=== PATIENT | male | born 1990 | race Caucasian/White ===

== ENCOUNTER 2018-02-03 10:26 | Emergency (ER) | payer BC, SELFPAY ==
[2018-02-03 10:39] VITALS: BP 161/85; PULSE 94; RESP 16; TEMP 37.1; O2SAT 98
--- NOTE | 2018-02-03 10:58 | ED.GENADUL ---
Disposition Clinical Impression: Hand, foot and mouth disease Disposition: HOME Condition: Fair Instructions: Viral Syndrome (ED) Additional Instructions: Encourage hydration. Tylenol and/or ibuprofen as needed for discomfort. If the rash becomes itchy you may find hydrocortisone cream of benefit. Remember that you are contagious. Please wear a mask when around others. Wash her hands frequently. If you develop new or worsening symptoms seek care urgently once again. Please follow-up with primary care in 1 week if symptoms persist. Referrals: Primary Care Provider [Outside] Forms: Work Release Medical Decision Making - Medical Decision Making Patient presents today with concern for gigo-nbjs-srh-mouth. He does have scant few erythematous, circular lesions on his hand consistent and right foot consistent with wnza-fmay-ptj-mouth. No intraoral lesions are noted. Patient is afebrile. He is nontoxic appearing. Patient I discussed underlying pathology of hand foot and mouth as well as expected course. Encouraged hydration. Tylenol and/or Motrin as needed for discomfort. Advised on new/worsening symptoms and when to seek care urgently once again. Advised f/u with primary care in one week is rash persists. All of his questions and concerns were addressed, he is in agreement with this plan. Patient requesting note to return to work. 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 We discussed that he is currently contagious and methods that may be taken to prevent spread. History of Present Illness - General Chief complaint: RashLesion Stated complaint: HAND/FOOT/MOUTH? Time Seen by Provider: 02/03/18 10:58 Source: patient, RN notes reviewed Mode of arrival: ambulatory Limitations: no limitations - History of Present Illness Initial comments: Patient is a 27-year-old male presenting with chief complaint of fsmq-kwdj-qmv-mouth. Reports that his child was recently diagnosed with igcg-ietd-imh-mouth and has subsequently been improving. However, he noted rash on his bilateral hands and right foot this morning. He denies any pain with this. States that he was feeling feverish this weekend. Overall, continues to still feel well. Has not noted any intraoral lesions. - Related Data Unknown [No Known Home Meds] 10/05/14 Allergies Allergy/AdvReac Type Severity Reaction Status Date / Time cefaclor [From Ceclor] Allergy Severe Skin Rash Unverified 02/03/18 10:43 amoxicillin [Amoxicillin] Allergy Unknown Unverified 02/03/18 10:43 Review of Systems Constitutional: see HPI ENT: as per HPI Respiratory: no symptoms reported. denies: cough, shortness of breath Cardiovascular: denies: chest pain Gastrointestinal: denies: abdominal pain, nausea, vomiting Skin: as per HPI Past Medical History - Past Medical History Medical history: hypertension Surgical history: no surgical history - Social History Living Situation: lives with family General Exam - General Limitations: no limitations General appearance: alert, in no apparent distress - Eye Eye exam: Present: normal apperance - ENT ENT exam: Present: normal exam, normal orophraynx, mucous membranes moist - Neck Neck exam: Present: normal inspection. Absent: tenderness, lymphadenopathy - Respiratory Respiratory exam: Present: normal lung sounds bilaterally. Absent: respiratory distress - Cardiovascular Cardiovascular Exam: Present: regular rate, normal rhythm, normal heart sounds - Extremities Exam Extremities exam: Present: normal inspection (rash, please see below. No pain with palpation), full ROM, normal capillary refill. Absent: tenderness, joint swelling - Neurological Exam Neurological exam: Present: alert, normal gait - Psychiatric Psychiatric exam: Present: normal affect, normal mood - Skin Skin exam: Present: rash (Patient has a small, circular intermittent rash, consistent with hand foot and mouth along the medial side of the right foot and bilateral palms. No opening in the skin, no warmth or drainage. No surrounding erythema. Full ROM) Course Vital Signs - 24 hr 02/03/18 10:39 Temperature 37.1 C Pulse 94 H Respiratory 16 Rate Blood Pressure 161/85 Pulse Oximetry 98
--- NOTE | 2018-02-03 11:01 | ED.GENADUL_ITS ---
Disposition Clinical Impression: Hand, foot and mouth disease Disposition: HOME Condition: Fair Instructions: Viral Syndrome (ED) Additional Instructions: Encourage hydration. Tylenol and/or ibuprofen as needed for discomfort. If the rash becomes itchy you may find hydrocortisone cream of benefit. Remember that you are contagious. Please wear a mask when around others. Wash her hands frequently. If you develop new or worsening symptoms seek care urgently once again. Please follow-up with primary care in 1 week if symptoms persist. Referrals: Primary Care Provider [Outside] Forms: Work Release Medical Decision Making - Medical Decision Making Patient presents today with concern for yfzr-kqrh-xtv-mouth. He does have scant few erythematous, circular lesions on his hand consistent and right foot consistent with tvus-kekg-nuu-mouth. No intraoral lesions are noted. Patient is afebrile. He is nontoxic appearing. Patient I discussed underlying pathology of hand foot and mouth as well as expected course. Encouraged hydration. Tylenol and/or Motrin as needed for discomfort. Advised on new/ worsening symptoms and when to seek care urgently once again. Advised f/u with primary care in one week is rash persists. All of his questions and concerns were addressed, he is in agreement with this plan. Patient requesting note to return to work. 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 We discussed that he is currently contagious and methods that may be taken to prevent spread. History of Present Illness - General Chief complaint: RashLesion Stated complaint: HAND/FOOT/MOUTH? Time Seen by Provider: 02/03/18 10:58 Source: patient, RN notes reviewed Mode of arrival: ambulatory Limitations: no limitations - History of Present Illness Initial comments: Patient is a 27-year-old male presenting with chief complaint of owqu-nijv-zzj- mouth. Reports that his child was recently diagnosed with vqqv-wbgc-zbo-mouth and has subsequently been improving. However, he noted rash on his bilateral hands and right foot this morning. He denies any pain with this. States that he was feeling feverish this weekend. Overall, continues to still feel well. Has not noted any intraoral lesions. - Related Data Unknown [No Known Home Meds] 10/05/14 Allergies Allergy/AdvReac Type Severity Reaction Status Date / Time cefaclor [From Ceclor] Allergy Severe Skin Rash Unverified 02/03/18 10:43 amoxicillin [Amoxicillin] Allergy Unknown Unverified 02/03/18 10:43 Review of Systems Constitutional: see HPI ENT: as per HPI Respiratory: no symptoms reported. denies: cough, shortness of breath Cardiovascular: denies: chest pain Gastrointestinal: denies: abdominal pain, nausea, vomiting Skin: as per HPI Past Medical History - Past Medical History Medical history: hypertension Surgical history: no surgical history - Social History Living Situation: lives with family General Exam - General Limitations: no limitations General appearance: alert, in no apparent distress - Eye Eye exam: Present: normal apperance - ENT ENT exam: Present: normal exam, normal orophraynx, mucous membranes moist - Neck Neck exam: Present: normal inspection. Absent: tenderness, lymphadenopathy - Respiratory Respiratory exam: Present: normal lung sounds bilaterally. Absent: respiratory distress - Cardiovascular Cardiovascular Exam: Present: regular rate, normal rhythm, normal heart sounds - Extremities Exam Extremities exam: Present: normal inspection (rash, please see below. No pain with palpation), full ROM, normal capillary refill. Absent: tenderness, joint swelling - Neurological Exam Neurological exam: Present: alert, normal gait - Psychiatric Psychiatric exam: Present: normal affect, normal mood - Skin Skin exam: Present: rash (Patient has a small, circular intermittent rash, consistent with hand foot and mouth along the medial side of the right foot and bilateral palms. No opening in the skin, no warmth or drainage. No surrounding erythema. Full ROM) Course Vital Signs - 24 hr 02/03/18 10:39 Temperature 37.1 C Pulse 94 H Respiratory 16 Rate Blood Pressure 161/85 Pulse Oximetry 98
== END 2018-02-03 11:37 | disposition home or self-care (01) ==
LOC: ER 05-20 09:53
PROVIDERS: Emergency Provider Student in an Organized Health Care Education/Training Program
DX: B08.4 Enteroviral vesicular stomatitis with exanthem (principal)
CPT/HCPCS: 99282

== ENCOUNTER 2018-06-26 09:37 | Emergency (ER) | payer BC, SELFPAY ==
--- NOTE | 2018-06-26 09:39 | W.ED.GENAD ---
Discharge Plan Disposition Patient Disposition: HOME Condition: Stable Discharge Details Chief Complaint: RespSymp Clinical Impression: Flu-like symptoms Primary Care Provider: Tavares Marino ED Provider: Nils Buchanan Home Meds and New Rx's Prescriptions: No Action No Known Home Meds RF: 0 Discharge Instructions Additional Instructions: You are likely suffering from the flu or other viral illness drink fluids to stay hydrated if not better next week see your primary care provider return to the emergency department if you feel you are becoming more ill or feel significantly worse Stand Alone Forms: Work Release Medical Decision Making 27 yo male who denies chronic medical problems comes in with complaint of not feeling well for 4 days. States he has had chills, dry cough, myalgias and his family members have had similar symptmos. Denies recent travel, severe headaches, dyspnea. HE has normal lung sounds, clear rhinorrhea, speaking in full setnences and appears well systemically. I suspect he has influenza vs other viral illness. No fever here and has clear lungs and cough is nonproductive so doubt pna and do not feel cxr or abx indicated. HE denies ivdu and has no murmurs or other stigmata of endocarditis. ADvised f/u with pcp and retrun precautions given Differential Diagnosis influenza, uri, pna HPI General Mode of arrival: ambulatory. Date/Time Provider Initiated Documentation: 06/26/18 09:38. Limitations to Documentation: no limitations. Information obtained by: patient. History of Present Illness 27 year old M presents to the emergency department with the chief complaint of not feeling well, Patient started experiencing this day(s) (4) and it has been constant. No relieving factors improve symptom(s), No exacerbating factors reported . Patient notes cough. Patient did receive the following treatments prior to arrival, none Related Data Home Medications Medication Instructions Recorded Confirmed Unknown [No Known Home Meds] 10/05/14 06/26/18 Allergies Allergy/AdvReac Type Severity Reaction Status Date / Time cefaclor [From Ceclor] Allergy Severe Skin Rash Unverified 06/26/18 09:47 amoxicillin [Amoxicillin] Allergy Unknown Unverified 06/26/18 09:47 Review of Systems Review of Systems All systems reviewed & are unremarkable except as noted in HPI and below Constitutional Denies weakness ENT Denies change in voice Cardiovascular Denies chest pain and Denies dyspnea Respiratory Denies dyspnea Gastrointestinal Denies abdominal pain, Denies nausea and Denies vomiting Musculoskeletal Denies joint swelling Integumentary/Breasts Denies rash Neurologic Denies weakness Psychiatric Denies depression [facility] Social History Smoking/Tobacco Use Status: Former Tobacco Use Exam Const General: no acute distress Orientation: alert HENMT Head: normal to inspection Ears: external ears normal General nose exam: external nose normal Mouth: moist mucous membranes Eyes General: appearance normal, both eyes and all related structures Neck Neck: normal visual inspection Resp Effort & Inspection: normal respiratory effort and able to speak in complete sentences Cardio Rate: regular rate Skin General skin exam: no rashes or lesions noted Neuro General: alert and oriented x3 Extrem General: normal to inspection Psych Mental Status: mental status grossly normal
[2018-06-26 09:43] VITALS: BP 146/84; PULSE 102; RESP 16; TEMP 36.4; O2SAT 99
--- NOTE | 2018-06-26 09:56 | ED.GENADUL_ITS ---
Discharge Plan Disposition Patient Disposition: HOME Condition: Stable Discharge Details Chief Complaint: RespSymp Clinical Impression: Flu-like symptoms Primary Care Provider: Tavares Marino ED Provider: Nils Buchanan Home Meds and New Rx's Prescriptions: No Action No Known Home Meds RF: 0 Discharge Instructions Additional Instructions: You are likely suffering from the flu or other viral illness drink fluids to stay hydrated if not better next week see your primary care provider return to the emergency department if you feel you are becoming more ill or feel significantly worse Stand Alone Forms: Work Release Medical Decision Making 27 yo male who denies chronic medical problems comes in with complaint of not feeling well for 4 days. States he has had chills, dry cough, myalgias and his family members have had similar symptmos. Denies recent travel, severe headaches, dyspnea. HE has normal lung sounds, clear rhinorrhea, speaking in full setnences and appears well systemically. I suspect he has influenza vs other viral illness. No fever here and has clear lungs and cough is nonproductive so doubt pna and do not feel cxr or abx indicated. HE denies ivdu and has no murmurs or other stigmata of endocarditis. ADvised f/u with pcp and retrun precautions given Differential Diagnosis influenza, uri, pna HPI General Mode of arrival: ambulatory . Date/Time Provider Initiated Documentation: 06/26/18 09:38 . Limitations to Documentation: no limitations . Information obtained by: patient . History of Present Illness 27 year old M presents to the emergency department with the chief complaint of not feeling well, Patient started experiencing this day(s) (4) and it has been constant. No relieving factors improve symptom(s), No exacerbating factors reported . Patient notes cough. Patient did receive the following treatments prior to arrival, none Related Data Home Medications Medication Instructions Recorded Confirmed Unknown [No Known Home Meds] 10/05/14 06/26/18 Allergies Allergy/AdvReac Type Severity Reaction Status Date / Time cefaclor [From Ceclor] Allergy Severe Skin Rash Unverified 06/26/18 09:47 amoxicillin [Amoxicillin] Allergy Unknown Unverified 06/26/18 09:47 Review of Systems Review of Systems All systems reviewed & are unremarkable except as noted in HPI and below Constitutional Denies weakness ENT Denies change in voice Cardiovascular Denies chest pain and Denies dyspnea Respiratory Denies dyspnea Gastrointestinal Denies abdominal pain, Denies nausea and Denies vomiting Musculoskeletal Denies joint swelling Integumentary/Breasts Denies rash Neurologic Denies weakness Psychiatric Denies depression [facility] Social History Smoking/Tobacco Use Status: Former Tobacco Use Exam Const General: no acute distress Orientation: alert HENMT Head: normal to inspection Ears: external ears normal General nose exam: external nose normal Mouth: moist mucous membranes Eyes General: appearance normal, both eyes and all related structures Neck Neck: normal visual inspection Resp Effort & Inspection: normal respiratory effort and able to speak in complete sentences Cardio Rate: regular rate Skin General skin exam: no rashes or lesions noted Neuro General: alert and oriented x3 Extrem General: normal to inspection Psych Mental Status: mental status grossly normal
== END 2018-06-26 09:59 | disposition home or self-care (01) ==
PROVIDERS: Emergency Provider Emergency Medicine; PCP Emergency Medicine
DX: J11.1 Influenza due to unidentified influenza virus with other respiratory manifestations (principal); Z87.891 Personal history of nicotine dependence
CPT/HCPCS: 99282

== ENCOUNTER 2019-08-19 02:16 | Outpatient (CLI) | payer MEDICAID, SELFPAY ==
--- NOTE | 2019-08-19 12:08 | DI.US_ITS ---
APPROVED REPORT EXAM: Comprehensive 2D, Doppler, and color-flow Echocardiogram Patient Location: Out-Patient [employer] W[employer] Machine Tender: Leydi Craven RDCS (AE) Indications: Family history of Arrhythmia, HTN, LVH Conclusion Left Ventricle : The left ventricle is normal size. Left ventricular systolic function is normal. Th ere is normal left ventricular wall thickness. There is normal LV segmental wall motion. The left ve ntricular diastolic function is normal. LVEF is 55-59%. Right Ventricle : The right ventricle is normal size. The right ventricular systolic function is norm al. Atria : The left atrium size is normal. The right atrium size is normal. Valves: There are no significant valvular abnormalities. Great Vessels : IVC is normal in size and collapses >50% with inspiration. There is no prior echocardiogram available for comparison. Wall motion Left Ventricle The left ventricle is normal size. Left ventricular systolic function is normal. There is normal left ventricular wall thickness. There is normal LV segmental wall motion. The left ventricular diastolic function is normal. LVEF is 55-59%. Right Ventricle The right ventricle is normal size. The right ventricular systolic function is normal. Atria The left atrium size is normal. The right atrium size is normal. Aortic Valve The aortic valve is normal in structure. Aortic valve is trileaflet. There is no aortic valvular sten osis. No aortic regurgitation is present. Mitral Valve The mitral valve is normal in structure. No evidence of mitral valve stenosis. Trace mitral regurgita tion. Tricuspid Valve The tricuspid valve is normal in structure. There is no tricuspid valve stenosis. Trace tricuspid reg urgitation. Pulmonic Valve The pulmonary valve is normal in structure. There is no pulmonic valvular stenosis. Trace pulmonic re gurgitation. Great Vessels The aortic root is normal in size. The ascending aorta is normal in size. IVC is normal in size and c ollapses >50% with inspiration. Pericardium There is no pericardial effusion. 2D Dimensions IVSD d PLAX 0.89 cm M: 0.6-1.2 LV Vol A2C d MOD 93.5 mL LVPW d PLAX 0.91 cm M: 0.6 - 1.2 LV Vol A4C d MOD 105.2 mL LVID d PLAX 4.80 cm M: 4.2 - 5.8 LA vol/ BSA A2C s A-L 36.4 mL/m2 LVDs 3.30 cm M: 2.5 - 4.0 LA vol/ BSA A4C s A-L 25.7 mL/m2 Ao Root d 2.77 cm M: 3.1 - 3.7 LA Vol/ BSA Biplane s A-L 31.3 mL/m2 RA Area A4C 14.61 cm2 LA Area A4C s MOD 17.45 cm2 RA Vol/ BSA A4C s A-L 19.1 mL/m2 LA Area A2C s MOD 21.23 cm2 Ao Asc Diam d 3.25 cm M: 2.6 - 3.4 LV EF A4C MOD 59.2 % LV EF Teichholz 58.9 % LV EF A2C MOD 60.2 % LVEF (Celestin's) 59.88 % M: 52 - 72 LV EF Biplane MOD 59.9 % LV Volume 75.08 mL M: 62 - 150 LV Volume Index 36.09 mL/m2 M: 34 - 74 LV Vol Biplane MOD 101.5 mL FS 31.20 % LV Diastology MV E' medial 0.130 (>0.07 m/s) E/A Ratio 1.7 LV E/e MED 6.40 (<14) MV E Vmax 0.83 (0.4-1.3 m/s) MV E' lateral 0.141 (>0.1 m/s) MV A Vmax 0.50 (0.4-1.3 m/s) LV E/e LAT 5.90 (<14) MV E/A Ratio 1.55 MV E/E' medial 6.44 MV E/E' lateral 5.93 Aortic Valve LVOT Area 3.07 cm2 AoV Area Vmax 2.84 cm2 LVOT Vmax 1.27 m/s AoV Area/ BSA (Vmax) 1.36 cm2/m2 LVOT Mean Rodo. 0.79 m/s AMANDA Mean Rodo. 2.57 cm2 LVOT Peak Grad 6.5 mmHg AMANDA Mean Rodo. Index 1.23 cm2/m2 LVOT Mean Grad 3.0 mmHg LVOT VTI 0.215 m LVOT Diam s 1.95 cm (M/F) 1.5-2.5 AoV Vmax 1.38 (0.5-1.3 m/s) Velocity Ratio 0.92 AoV Mean Rodo. 0.94 m/s AoV Peak Grad 7.6 mmHg LVOT SV 65.93 mL AoV Mean Grad 4.0 (<5 mmHg) AoV VTI 0.232 (0.18-0.25 m) AoV Area VTI 2.84 (2.5-4.5 cm2) AoV Area/ BSA (VTI) 1.36 cm/m2 Mitral Valve MV DT 199 (160-240 msec) MV PHT 58 msec MV Area PHT 3.81 cm2 Pulmonary Valve PV Vmax 1.23 (0.5-1.5 m/s) RVOT Peak Gr. 3.37 mmHg PV Peak Grad 6.0 mmHg RVOT Mean Gr. 1.65 mmHg PV Mean Grad 3.1 mmHg RVOT VTI 0.165 m PV VTI 0.223 m RVOT Vmax 0.92 m/s Tricuspid Valve TR Peak Grad 29.6 mmHg TR Vmax 2.72 m/s RA Pressure 3.00 mmHg RVSP (TR) 32.6 mmHg
== END 2019-08-19 02:36 ==
PROVIDERS: PCP Emergency Medicine; Visit Provider Family Medicine
DX: I10 Essential (primary) hypertension (principal); Z82.49 Family history of ischemic heart disease and other diseases of the circulatory system
CPT/HCPCS: 93306

== ENCOUNTER 2021-01-23 12:11 | Outpatient (CLI) | payer MEDICAID, SELFPAY | END 2021-01-23 12:12 | disposition home or self-care (01) | LOC: LBO 12:11 | DX: Z20.822 Contact with and (suspected) exposure to COVID-19 (principal); R05 Cough | CPT/HCPCS: 87635 ==

== ENCOUNTER 2021-05-21 10:55 | Emergency (ER) | payer MEDICAID, SELFPAY ==
[2021-05-21 11:01] VITALS: BP 170/112; PULSE 97; RESP 18; TEMP 36.7; O2SAT 98
[2021-05-21 11:03] VITALS: BP 170/112; PULSE 95; O2SAT 98
[2021-05-21 11:04] VITALS: PULSE 90; RESP 23; O2SAT 99
[2021-05-21 11:10] VITALS: PULSE 82; RESP 22; O2SAT 98
--- NOTE | 2021-05-21 11:25 | ED.GENADUL_ITS ---
Discharge Plan Disposition Patient Disposition: HOME Condition: Stable Discharge Details Clinical Impression: Cough Primary Care Provider: Dayo Jackson ED Provider: Jagjit Lai Home Meds and New Rx's Prescriptions: No Action No Known Home Meds RF: 0 Discharge Instructions Instructions: Acute Cough (ED) Additional Instructions: Covid test is pending, typically results in 2-3 days. Presumptively I do believe you have Covid and recommend quarantining for 10 days from the onset of your symptoms. Plenty of fluids to avoid dehydration. [id number] Tylenol and/or Motrin as directed for discomfort. You are being sent home with a pulse oximeter, please monitor your oxygen levels, if your O2 levels are consistently below 90 please return immediately to the ER. Otherwise contact your primary care provider on Saturday to discuss your ER visit and need for outpatient reevaluation. Medical Decision Making 30-year-old male presents with flulike symptoms, took a home Covid test today and was positive. Requesting a Covid test now. He appears well, nontoxic, does not meet criteria for antibiotic infusion, is not requiring supplemental oxygen. Presumptively patient does have Covid given his symptoms and positive home test. Will test now with a send out test. Will send home with Covid precautions, quarantining, [id number] medications, and home pulse oximeter. Standard discharge and return precautions provided. Patient has no additional questions or concerns. He is afebrile, lungs are clear to auscultation, O2 sat is 98% on room air. Extremely low suspicion for acute pneumonia, will not pursue x-ray of the chest Medical Records Medical records reviewed: Yes I reviewed the patient's medical records. HPI General Mode of arrival: ambulatory . Date/Time Provider Initiated Documentation: 05/21/21 10:59 . Limitations to Documentation: no limitations . Information obtained by: patient . HPI Narrative: This is a 30-year-old gentleman, non-smoker, no significant past medical history presenting to the ER requesting a Covid test for mild viral-like syndrome. Patient states that he developed symptoms on Saturday, dull headache, body aches, subjective fever, mild dry cough. He took an [id number] Covid test on Saturday and it was negative. He states that since that time symptoms have persisted. He denies a documented fever, neck pain, sore throat, shortness of breath, productive cough, abdominal pain, nausea, vomiting or diarrhea, skin rash. He denies any obvious sick contacts. He is not vaccinated for Covid. This morning he took another [id number] test and today it was positive. Coming today to the ER requesting a third test. Related Data Home Medications Medication Instructions Recorded Confirmed Unknown [No Known Home Meds] 10/05/14 05/21/21 Allergies Allergy/AdvReac Type Severity Reaction Status Date / Time cefaclor [From Ceclor] Allergy Severe Skin Rash Unverified 05/21/21 11:07 amoxicillin [Amoxicillin] Allergy Unknown Unverified 05/21/21 11:07 General Stated Complaint: RespSymp APOLLO: 3 Review of Systems Constitutional Constitutional: Reports fever(s) (Subjective) and Reports headache(s) ENT Ears, Nose, Mouth, and Throat: Reports headache(s), Denies neck pain and Denies sore throat Cardiovascular Cardiovascular: Denies chest pain and Denies dyspnea Respiratory Respiratory: Reports cough and Denies dyspnea Gastrointestinal Gastrointestinal: Denies abdominal pain, Denies nausea and Denies vomiting Musculoskeletal Musculoskeletal: Reports myalgias and Denies neck pain Integumentary/Breasts Skin/Breast: Denies rash Neurologic Neurologic: Reports headache(s) PFSH All Active Problems (Updated 05/21/21 @ 11:38 by MARGIE Adam) Cough (Acute) Social History Smoking/Tobacco Use Status: Current every day Tobacco Type: smokeless tobacco Smoking risk assessment performed?: Yes Alcohol Intake: current Alcohol Intake frequency: a few times a week Alcohol type: beer Drug use: Socially Substance use type: marijuana Do you feel safe at home: Yes Do you feel safe in your relationship?: Yes Exam Const General: cooperative, healthy appearing, comfortable and no acute distress Orientation: alert, awake and oriented x3 HENMT Head: normal to inspection, normocephalic and atraumatic Ears: external ears normal, TM's normal bilaterally and EAC's normal Mouth: moist mucous membranes Throat: posterior oropharynx normal Eyes General: appearance normal, both eyes and all related structures Conjunctivae: conjunctivae normal Neck Neck: normal visual inspection, full ROM, no lymphadenopathy, no meningeal signs, trachea midline, supple and nontender Resp Effort & Inspection: normal respiratory effort and able to speak in complete sentences Auscultation: clear to auscultation bilaterally Cardio Rate: regular rate Rhythm: regular rhythm GI Palpation: soft and nontender Skin General skin exam: no rashes or lesions noted Neuro General: patient alert, patient awake, moves all extremities and no focal motor deficits Sensory Exam: no sensory deficits noted Psych Appearance: grossly normal Mental Status: mental status grossly normal Course Vital Signs Vital signs: Vital Signs Temperature 36.7 C 05/21/21 11:01 Pulse 97 H 05/21/21 11:01 Respiratory Rate 18 05/21/21 11:01 Blood Pressure 170/112 H 05/21/21 11:01 Pulse Oximetry 98 05/21/21 11:01 Temperature 36.7 C 05/21/21 11:01 Temperature Source Skin 05/21/21 11:01 Pulse 95 H 05/21/21 11:03 Pulse 82 05/21/21 11:10 Respiratory Rate 22 05/21/21 11:10 Respiratory Effort 05/21/21 11:07 Respiratory Depth Normal 05/21/21 11:07 Blood Pressure 170/112 H 05/21/21 11:03 Blood Pressure Mean 127 05/21/21 11:03 Pulse Oximetry 98 05/21/21 11:10 Oxygen Delivery Method Room Air 05/21/21 11:01 Oxygen Flow Rate 0 05/21/21 11:01 Pain Level 3 05/21/21 11:01 PAWSS Have you Been Recently Intoxicated or Drunk Within the Last 30 days?: No Have you Ever Experienced Previous Episodes of Alcohol Withdrawal?: No Have you ever Experienced Withdrawal Seizures?: No Have you ever Experienced Delirium Tremens(DT)s?: No Have you ever undergone Alcohol Rehabilitation Treatment (i.e, inpt ot outpatient treatment programs)?: No Have you ever Experienced Blackouts?: No Have you ever Combined Alcohol with other Downers within the last 90 days?: No Have you ever Combined Alcohol with any other Substance of Abuse during the last 90 days?: No Evidence of Increased Autonomic Activity (i.e. HR>120, tremor, sweating, agitation, nausea)?: No Result: 0
[2021-05-23 16:25] LABS: COVID-19 RT-PCR UVMMC Result Positive (Negative)
== END 2021-05-21 11:52 | disposition home or self-care (01) ==
PROVIDERS: Emergency Provider Physician Assistant; PCP Family Medicine
DX: U07.1 COVID-19 (principal); R51.9 Headache, unspecified
CPT/HCPCS: 99282; U0003; 99283

== ENCOUNTER 2021-06-16 01:12 | Emergency (ER) | payer MEDICAID, SELFPAY ==
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
[2021-06-16 01:13] VITALS: BP 177/93; PULSE 108; RESP 18; TEMP 37; O2SAT 99
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
[2021-06-16 01:45] VITALS: BP 161/92; PULSE 115; RESP 16; O2SAT 99
[2021-06-16] MEDS: Acetaminophen 500 MG TAB 1000 MG PO (01:54)
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
[2021-06-16 02:06] VITALS: BP 169/82; PULSE 124; RESP 18; O2SAT 100
== END 2021-06-16 02:20 | disposition home or self-care (01) ==
LOC: ER 02:17
PROVIDERS: Emergency Provider Emergency Medicine; PCP Family Medicine
DX: S16.1XXA Strain of muscle, fascia and tendon at neck level, initial encounter (principal); R51.9 Headache, unspecified; V59.9XXA Occupant (driver) (passenger) of pick-up truck or van injured in unspecified traffic accident, initial encounter
CPT/HCPCS: 99284; 70450; 72125; 99283

== ENCOUNTER 2023-03-06 15:25 | Emergency (ER) | payer MEDICAID, SELFPAY ==
[2023-03-06 15:29] VITALS: BP 154/94; PULSE 79; RESP 14; TEMP 37.3; O2SAT 100
--- NOTE | 2023-03-06 15:45 | DI.US_ITS ---
Exam(s) US ABDOMEN LIMITED EXAM: US ABDOMEN LIMITED CLINICAL HISTORY: RUQ pain TECHNIQUE: Ultrasound abdomen performed using standard protocol. COMPARISON: No exams were available for comparison FINDINGS: PANCREAS: Normal where visualized. LIVER: Normal. Hepatopedal flow in the Portal Vein. The liver measures in 11.9 cm length. GALLBLADDER: No evidence of cholelithiasis. No evidence of wall thickening. No pericholecystic fluid identified. BILIARY SYSTEM: Common bile duct measures < 7 mm. No intrahepatic biliary ductal dilation. VAUGHN'S SIGN: Negative. RIGHT KIDNEY: Kidney is normal in size. No evidence of renal calculi. No evidence of hydronephrosis. No renal mass or cyst identified. ASCITES: None seen. IMPRESSION: 1. Normal sonographic appearance of the upper abdomen. 2. Findings were discussed with the emergency department at 4:19 p.m. on 03/06/2023. DATA REPOSITORY:
[2023-03-06 16:30] LABS: Abs Immature Grans 0.04 10^3/uL (0.0-0.06); Absolute Basophil Count 0.09 10^3/uL (0.0-0.2); Absolute Lymphocyte Count 2.07 10^3/uL (1.2-3.4); Absolute Monocyte Count 0.85 10^3/uL (0.1-0.8); Absolute Neutrophil Count 7.46 10^3/uL (1.2-6.7); Basophils % 0.8; Eosinophils % 1.9; HCT 45.4 % (40.0-50.0); HGB 15.8 g/dL (13.5-17.5); Immature Grans % 0.4; Lymphocytes % 19.3; MCH 29.6 pg (27.0-33.0); MCHC 34.8 % (32.0-36.0); MCV 85 fL (80-95); MPV 9.8 fL (8.0-11.0); Monocytes % 7.9; Neutrophils % 69.7; Platelet Count 301 10^3/uL (130-400); RBC 5.33 10^6/uL (4.36-5.78); RDW 12.1 % (11.8-14.1); RDW-SD 37.4 fL; WBC 10.71 10^3/uL (4.4-10.8)
[2023-03-06 16:54] LABS: ALT 23 U/L (16-63); AST 16 U/L (15-37); Albumin 4.8 g/dL (3.4-5.0); Alkaline Phosphatase 58 U/L (46-116); Anion Gap 10.8 mmol/L (3-11); BUN 14 mg/dL (7-18); Bilirubin, Total 1.4 mg/dL (0.2-1.0); CO2 27.2 mmol/L (21.0-32.0); Calcium 9.9 mg/dL (8.5-10.1); Chloride 105 mmol/L (98-107); Estimated GFR 101.92 (mL/min/1.73m2); Glucose 84 mg/dL (74-106); Lipase 28 U/L (16-77); Potassium 4.1 mmol/L (3.5-5.1); Sodium 143 mmol/L (136-145); Total Protein 8.1 g/dL (6.4-8.2)
--- NOTE | 2023-03-06 16:56 | ED.GENADUL_ITS ---
Discharge Plan Disposition Patient Disposition: Home Discharge Details Clinical Impression: Acute epigastric pain Primary Care Provider: Dayo Jackson ED Provider: Luz De Leon Home Meds and New Rx's Prescriptions: Continued lisinopril 5 mg tablet 5 mg PO DAILY Discharge Instructions Instructions: Abdominal Pain (ED) Additional Instructions: take prilosec daily take pepcid as prescribed follow-up to establish care return with persistent, worsening, or any new complaints Discharge Data Discharge Date/Time-TO BE ENTERED AT DEPARTURE: 03/06/23 17:36 Medical Decision Making This 32-year-old male presents with right upper quadrant pain for the past 2 hours. States started at work. Denies any additional complaints. Denies any chest pain or shortness of breath. Denies any dizziness or weakness. Diagnostic labs not show evidence of acute abnormality, ultrasound negative per radiology interpretation and my review Bilirubin slightly elevated, suspect [place] Take Pepcid and Prilosec for the next several weeks to see if it helps with discomfort and return earlier should you have new or worsening complaints HPI General Date/Time Provider Initiated Documentation: 03/06/23 15:37 . HPI Narrative: This 32-year-old male presents with report of right upper quadrant pain, denies chest pain or shortness of breath. States the pain started approximately 10:00. Denies any known exacerbating factors. Denies any fever or chills. Denies any nausea or vomiting. Denies any abdominal pain or blood in stool. Denies any weight loss. Does chew tobacco, smokes marijuana, denies alcohol use, sober for 2 years per patient. Denies any blood in stools. Denies any exacerbating or alleviating factors. Related Data Home Medications Medication Instructions Recorded Confirmed lisinopril 5 mg tablet 5 mg PO DAILY 06/16/21 06/16/21 Allergies Allergy/AdvReac Type Severity Reaction Status Date / Time cefaclor [From Ceclor] Allergy Severe Skin Rash Unverified 06/16/21 01:24 amoxicillin [Amoxicillin] Allergy Unknown Unverified 06/16/21 01:24 General Stated Complaint: Abd Prob APOLLO: 3 PFSH All Active Problems (Updated 03/06/23 @ 17:16 by MARGIE Hammer) Acute epigastric pain (Acute) Cough (Acute) Medical History HTN (hypertension) Surgical History No significant past surgical history Social History Smoking/Tobacco Use Status: Current every day Tobacco Type: smokeless tobacco Smoking risk assessment performed?: Yes Alcohol Intake: current Alcohol Intake frequency: a few times a week Alcohol type: beer Drug use: Socially Substance use type: marijuana Do you feel safe at home: Yes Do you feel safe in your relationship?: Yes Course Vital Signs Vital signs: Vital Signs Temperature 37.3 C 03/06/23 15:29 Pulse 79 03/06/23 15:29 Respiratory Rate 14 03/06/23 15:29 Blood Pressure 154/94 H 03/06/23 15:29 Pulse Oximetry 100 03/06/23 15:29 Temperature 37.3 C 03/06/23 15:29 Temperature Source Skin 03/06/23 15:29 Pulse 79 03/06/23 15:29 Respiratory Rate 14 03/06/23 15:29 Respiratory Effort Normal 03/06/23 16:24 Blood Pressure 154/94 H 03/06/23 15:29 Blood Pressure Position Sitting 03/06/23 15:29 Pulse Oximetry 100 03/06/23 15:29 Oxygen Delivery Method Room Air 03/06/23 15:29 Oxygen Flow Rate 0 03/06/23 15:29 Pain Level 2 03/06/23 15:29 Lab/Test Results Lab/Test Results: Laboratory Tests Range/Units 03/06/23 16:22 WBC (4.4-10.8) 10^3/uL 10.71 RBC (4.36-5.78) 10^6/uL 5.33 Hgb (13.5-17.5) g/dL 15.8 Hct (40.0-50.0) % 45.4 MCV (80-95) fL 85 MCH (27.0-33.0) pg 29.6 MCHC (32.0-36.0) % 34.8 RDW (11.8-14.1) % 12.1 Plt Count (130-400) 10^3/uL 301 MPV (8.0-11.0) fL 9.8 Immature Gran % 0.4 Neutrophils % 69.7 Lymphocytes % 19.3 Monocytes % 7.9 Eosinophils % 1.9 Basophils % 0.8 Nucleated RBC % (0.0-0.3) % 0.0 Absolute Neutrophils (1.2-6.7) 10^3/uL 7.46 H Absolute Lymphocytes (1.2-3.4) 10^3/uL 2.07 Absolute Monocytes (0.1-0.8) 10^3/uL 0.85 H Absolute Eosinophils (0.0-0.7) 10^3/uL 0.20 Absolute Basophils (0.0-0.2) 10^3/uL 0.09
[2023-03-06 17:18] LABS: Bilirubin Negative (Negative); Blood Negative (Negative); Clarity Clear (Clear); Glucose Negative (Negative); Ketones 40 mg/dL (Negative); Leukocyte Esterase Negative (Negative); Nitrite Negative (Negative); Specific Gravity >= 1.030 (1.005-1.025); Urobilinogen 0.2 mg/dL (Up to 0.2)
== END 2023-03-06 17:36 | disposition home or self-care (01) ==
PROVIDERS: Emergency Provider Physician Assistant; PCP Family Medicine
DX: R10.812 Left upper quadrant abdominal tenderness (principal); R10.13 Epigastric pain; F17.200 Nicotine dependence, unspecified, uncomplicated
CPT/HCPCS: 80053; 83690; 99284; 76705; 81003; 85025; 99283

== ENCOUNTER 2024-06-01 13:10 | Inpatient (IN) | payer MEDICAID, SELFPAY ==
[2024-06-01] VITALS (45 sets, daily range): BP systolic 123–180; BP diastolic 74–101; PULSE 72–114; RESP 15–34; TEMP 36.4–38.1; O2SAT 94–100
--- NOTE | 2024-06-01 13:15 | DI.RAD_ITS ---
Exam(s) XR CHEST 2V PA LATERAL EXAM: XR CHEST 2V PA LATERAL CLINICAL HISTORY: cough, fever TECHNIQUE: 2D digital imaging was performed. Two views. COMPARISON: CT CT ABDOMEN PELVIS W from 06/01/2024 FINDINGS: Lateral view is limited by poor inspiratory effort. HEART: Normal size. Aorta: Not dilated. PULMONARY VASCULATURE: Normal. MEDIASTINUM: Unremarkable. LUNGS: Clear. PLEURAL SPACE: No pleural effusion or pneumothorax. BONE:Unremarkable for age. SOFT TISSUES: Unremarkable. IMPRESSION: No acute abnormality. DATA REPOSITORY: RADIATION DOSE DELIVERED:
--- NOTE | 2024-06-01 13:41 | ED.GENADUL_ITS ---
Discharge Plan Discharge Details Chief Complaint: Fever Primary Care Provider: Dayo Jackson ED Provider: Roosevelt Her Home Meds and New Rx's Prescriptions: No Action No Known Home Meds HPI General Date/Time Provider Initiated Documentation: 06/01/24 13:21 . HPI Narrative: 33 year-old male presents to ED today by POV/ambulating with a chief complaint of sore throat, productive cough, fever, nausea with onset a week ago. Quality described as generally feels sick, denies focal chest pain, no radiation to respiratory distress, profound lethargy, syncope, diarrhea, vomiting. Severity is described as moderate. Palliating factors include nothing specific attempted. Provoking factors include nothing specific. Patient not anticoagulated. Related Data Home Medications ?Medication ?Instructions ?Recorded ?Confirmed Unknown [No Known Home Meds] 09/09/23 06/01/24 Allergies Allergy/AdvReac Type Severity Reaction Status Date / Time cefaclor (From Ceclor) Allergy Severe Skin Rash Unverified 06/01/24 13:38 amoxicillin (Amoxicillin) Allergy Unknown Other (See Unverified 06/01/24 13:38 Comment) General Stated Complaint: Fever APOLLO: 4 Review of Systems All systems reviewed & are unremarkable except as noted in HPI and below Exam Narrative Exam Narrative: GENERAL APPEARANCE: Well-nourished, toxic, awake and alert, atraumatic, no acute distress. SKIN: Warm, pink, dry, intact, without rashes/lesions/ulcerations. HEAD: Normocephalic, atraumatic, normal hair distribution for gender/age. EYES: Normal conjunctiva, no exudates on lids/lashes. ENT: Nares patent, no circumoral cyanosis, no facial swelling, exudate without shift or swelling to left tonsil, uvula midline NECK: Supple, trachea midline, painless cervical ROM. LUNGS/CHEST: Lungs CTA bilaterally-no rhonchi/rales/wheezes diffusely, non- labored respirations, normal A/P diameter, symmetrical expansion, no chest wall deformity HEART (CV/PV): Regular rate and rhythm without murmur, no peripheral edema, no JVD. ABDOMEN: Soft, non-distended, no guarding, negative Ibrahim's, no severe right upper quadrant tenderness. MSK: Normal ROM, no swelling/deformity to bilateral UEs or LEs, moving all extremities without weakness, no cyanosis, spine midline without tenderness, normal curvature. NEURO: Mental Status AAOx4 - alert to person, place, time, events No facial droop, no forehead involvement. Motor: No focal weakness - strength 5/5 in bilateral UEs and LEs, proximal and distal, symmetric. Sensory: sensation intact to light touch globally. Gait normal: patient ambulated without ataxia into ED room. PSYCH: euthymic, cooperative, pleasant, appropriate speech Course Vital Signs Vital signs: Vital Signs Temperature 38.1 C H 06/01/24 13:13 Pulse 110 H 06/01/24 13:13 Respiratory Rate 15 06/01/24 13:13 Blood Pressure 123/79 06/01/24 13:13 Pulse Oximetry 98 06/01/24 13:13 Temperature 38.1 C H 06/01/24 13:13 Pulse 110 H 06/01/24 13:13 Respiratory Rate 15 06/01/24 13:13 Blood Pressure 123/79 06/01/24 13:13 Blood Pressure Position Sitting 06/01/24 13:13 Pulse Oximetry 98 06/01/24 13:13 Oxygen Delivery Method Room Air 06/01/24 13:13 Oxygen Flow Rate 0 06/01/24 13:13 Medical Decision Making This dictation utilizes [id number] dictation software and may contain unedited grammatical errors. 33 year-old male presents to ED today by POV/ambulating with a chief complaint of sore throat, productive cough, fever, nausea with onset a week ago. Quality described as generally feels sick, denies focal chest pain, no radiation to respiratory distress, profound lethargy, syncope, diarrhea, vomiting. Severity is described as moderate. Palliating factors include nothing specific attempted. Provoking factors include nothing specific. Patients' medical history: Hypertension. Family and social history: Noncontributory, states healthy exercises regularly, denies heavy EtOH use, currently- states he used to drink a lot but quit for two years, now only in small amounts Pertinent exam findings / vital signs include lungs overtly CTA, benign abdomen, there is some exudate on his left tonsil but uvula is midline, toxic vital signs with fever. Differential / pathologies of concern include strep, Legionella pneumonia, cholangitis or other biliary tree pathology, gastroenteritis, colitis, deep space infection less likely in the neck. Diagnostic studies of: -CBC, CMP, lactate, lipase, conjugated bilirubin, alcohol level, rapid strep, COVID/flu/RSV PCR, blood cultures, XR chest, CT ABD/pelvis W contrast, hepatitis panel. -Leukocytosis of 12.6 with elevated lymphocyte count at 8.34 -Lactate elevated at 2.1 -CMP shows mild hyponatremia, mild hypokalemia, repleted p.o., mild hypocalcemia, significantly elevated total bilirubin at 5.2 with conjugated bilirubin of 4.2 indicating possible obstructive pathology -Significant elevation of AST and ALT around 300, refluxing acute hepatitis panel -Lipase within normal limits -Alcohol level negative Interventions of: -1L IVF NS, empiric 750mg IV levofloxacin to cover PNA in setting of PCN/ceph allergy. ED Course/Assessment/Plan: 33-year-old male presents with 1 week of fever and cough, has markers of possible sepsis with elevated lactate but has significant elevation of liver enzymes and possible obstructive pattern and conjugated bilirubin, possible Legionella pneumonia suspected with this bump in LFTs but will rule out any obstructive pathology with CT, patient is nontender in the abdomen but has noticed bloating, patient signed out to oncoming provider Cinthya Lincoln, OIL FIELD EQUIPMENT MECHANIC SUPERVISOR with pending imaging studies. Findings not consistent with severe sepsis, septic shock. Disposition of Pneumonia, Hepatitis. Patient verbalized understanding of the plan and return to ED criteria and engaged in shared decision making. Medical Records Medical records reviewed: Yes I reviewed the patient's medical records. Imaging Data Radiologic Study: Attestation: I personally reviewed and interpreted this imaging study as follows: Imaging: CT Scan My impression: Pending at sign-out Radiologic Study #2: Attestation: I personally reviewed and interpreted this imaging study as follows: Imaging: X-Ray My impression: Pending at sign-out Lab Data Lab results reviewed: Yes I reviewed the patient's lab results. Labs: 06/01/24 14:15 Tonsil - Not Specified Group A Streptococcus Culture - Pending 06/01/24 14:04 Blood Blood Culture - Pending 06/01/24 14:04 Blood Blood Culture - Pending Laboratory Tests Range/Units 06/01/24 13:50 WBC (4.4-10.8) 10^3/uL 12.63 H RBC (4.36-5.78) 10^6/uL 4.93 Hgb (13.5-17.5) g/dL 15.2 Hct (40.0-50.0) % 43.0 MCV (80-95) fL 87 MCH (27.0-33.0) pg 30.8 MCHC (32.0-36.0) % 35.3 RDW (11.8-14.1) % 12.4 Plt Count (130-400) 10^3/uL 185 MPV (8.0-11.0) fL 10.3 Immature Gran % % 0.0 Neutrophils % % 21.0 Band Neutrophils % % 0 Lymphocytes % % 62.0 Atypical Lymphs % % 4 Monocytes % % 13.0 Eosinophils % % 0.0 Basophils % % 0.0 Nucleated RBC % (0.0-0.3) % 0.0 Absolute Neutrophils (1.2-6.7) 10^3/uL 2.65 Absolute Lymphocytes (1.2-3.4) 10^3/uL 8.34 H Absolute Monocytes (0.1-0.8) 10^3/uL 1.64 H Absolute Eosinophils (0.0-0.7) 10^3/uL 0.00 Absolute Basophils (0.0-0.2) 10^3/uL 0.00 VBG Lactate (0.6-1.4) mmol/L 2.1 H Sodium (136-145) mmol/L 134 L Potassium (3.5-5.1) mmol/L 3.3 L Chloride (98-107) mmol/L 97 L Carbon Dioxide (21.0-32.0) mmol/L 27.9 Anion Gap (3-11) mmol/L 9.1 BUN (7-18) mg/dL 9 Creatinine (0.70-1.30) mg/dL 1.3 Est GFR (CKD-EPI 2020) (mL/min/1.73m2) 73.93 Glucose (74-106) mg/dL 103 Calcium (8.5-10.1) mg/dL 8.3 L Total Bilirubin (0.2-1.0) mg/dL 5.28 H Conjugated Bilirubin (0.0-0.2) mg/dL 4.2 H AST (15-37) U/L 287 H ALT (16-63) U/L 292 H Alkaline Phosphatase (46-116) U/L 339 H Total Protein (6.4-8.2) g/dL 7.4 Albumin (3.4-5.0) g/dL 3.3 L Lipase (<78) U/L 35 Ethyl Alcohol (<10) mg/dL < 3.0 COVID-19 Source Nasopharynx SARS-CoV-2 (PCR) (Negative) Negative Influenza Type A (PCR) (Negative) Negative Influenza Type B (PCR) (Negative) Negative RSV (PCR) (Negative) Negative Quality:SDOH Health Related Social Needs: No Data to Display PFSH All Active Problems (Updated 04/06/23 @ 00:01 by SORAYA ROMERO) Cough (Acute) Medical History HTN (hypertension) Surgical History No significant past surgical history Social History Smoking/Tobacco Use Status: Current every day Tobacco Type: smokeless tobacco Smoking risk assessment performed?: Yes Alcohol Intake: current Alcohol Intake frequency: a few times a week Alcohol type: beer Drug use: Socially Substance use type: marijuana Do you feel safe at home: Yes Do you feel safe in your relationship?: Yes
[2024-06-01 13:54] LABS: Abs Immature Grans 0.15 10^3/uL (0.0-0.06); HGB 15.2 g/dL (13.5-17.5); MCH 30.8 pg (27.0-33.0); MCHC 35.3 % (32.0-36.0); MCV 87 fL (80-95); MPV 10.3 fL (8.0-11.0); Platelet Count 185 10^3/uL (130-400); RBC 4.93 10^6/uL (4.36-5.78); RDW 12.4 % (11.8-14.1); RDW-SD 39.6 fL; WBC 12.63 10^3/uL (4.4-10.8)
--- NOTE | 2024-06-01 14:00 | DI.CT_ITS ---
Exam(s) CT ABDOMEN PELVIS W EXAM: CT ABDOMEN PELVIS W CLINICAL HISTORY: sepsis, elev bili- infection search TECHNIQUE: Imaging Protocol: Axial computed tomography images with coronal and sagittal reformatted images were created and reviewed. CONTRAST MATERIAL: Intravenous: Omnipaque 350 Contrast volume:80 mL Oral: No COMPARISON: No exams were available for comparison FINDINGS: ABDOMEN: Lung Bases: There is dependent atelectasis in the lung bases. Liver: Normal density. No measurable mass. The liver is enlarged measuring 21 cm. Portal, Superior Mesenteric, and Splenic Veins: Unremarkable. Gallbladder and Biliary Tract: No radiodense calculus or dilation. Pancreas: Normal density, no abnormal calcifications or inflammatory process. Spleen: There are several areas of decreased attenuation seen within the spleen. There are prominentl y peripherally based. The spleen is enlarged measuring 17.5 cm. Adrenals: No masses seen. Kidneys: Normal size, contour and axis. No radiodense stones or obstructive uropathy. No masses seen. Abdominal Aorta: Abdominal portion non-dilated. Bowel: No obstruction or bowel wall thickening. There is no evidence of appendicitis. Peritoneal Cavity: No ascites, collection or mesenteric inflammatory response. No free air. Lymph Nodes: Within normal limits. Bones: Within normal limits for the patient's age. Soft Tissues: Unremarkable. PELVIS: Bladder: Symmetric distention, no gross wall thickening. Reproductive Organs: Unremarkable as visualized. Lymph Nodes: Within normal limits. Bones: Within normal limits for the patient's age. IMPRESSION: 1. Splenomegaly. Multiple areas of decreased attenuation scattered throughout the spleen. The a perip herally located. Differential considerations include infarcts, masses or abscesses. Lacerations are c onsidered less likely. Please correlate clinically. No perisplenic hematoma is present. There is no e vidence of a splenic artery or vein thrombus. 2. Mild hepatomegaly. RADIATION DOSE DELIVERED: Total DLP DATA REPOSITORY: All CT scans at this facility are submitted to the National Radiology Data Registry (NRDR) Dose Index Registry (DIR) with the [employer] (ACR). RADIATION OPTIMIZATION: All CT scans at this facility use at least one of these dose optimization te chniques: automated exposure control; mA and/or kV adjustment per patient size (includes targeted exa ms where dose is matched to clinical indication); or iterative reconstruction.
[2024-06-01 14:03] LABS: Lactate 2.1 mmol/L (0.6-1.4)
[2024-06-01 14:10] LABS: ALT 292 U/L (16-63); AST 287 U/L (15-37); Albumin 3.3 g/dL (3.4-5.0); Alkaline Phosphatase 339 U/L (46-116); Anion Gap 9.1 mmol/L (3-11); BUN 9 mg/dL (7-18); Bilirubin, Total 5.28 mg/dL (0.2-1.0); CO2 27.9 mmol/L (21.0-32.0); CREATININE 1.3 mg/dL (0.70-1.30); Chloride 97 mmol/L (98-107); Estimated GFR 73.93 (mL/min/1.73m2); Glucose 103 mg/dL (74-106); Lipase 35 U/L (<78); Potassium 3.3 mmol/L (3.5-5.1); Sodium 134 mmol/L (136-145); Total Protein 7.4 g/dL (6.4-8.2)
[2024-06-01 14:12] LABS: Absolute Lymphocyte Count 8.34 10^3/uL (1.2-3.4); Absolute Monocyte Count 1.64 10^3/uL (0.1-0.8); Absolute Neutrophil Count 2.65 10^3/uL (1.2-6.7); Atypical Lymphocytes % 4 %; Bands % 0 %; Diff Comment Manual Differential
[2024-06-01 14:16] LABS: Calcium 8.3 mg/dL (8.5-10.1)
[2024-06-01] MEDS: Acetaminophen 500 MG TAB 1000 MG PO (14:26)
[2024-06-01] MEDS: Ibuprofen 400 MG TAB PO (14:26)
[2024-06-01] MEDS: Normal Saline 1,000 ML 1000 ML IV (14:27)
[2024-06-01 14:46] LABS: Bilirubin, Direct 4.2 mg/dL (0.0-0.2)
[2024-06-01 14:47] LABS: ETHANOL BLOOD < 3.0 mg/dL (<10)
[2024-06-01 14:51] LABS: COVID-19 PCR Negative (Negative); Influenza A PCR Negative (Negative); Influenza B PCR Negative (Negative); RSV PCR Negative (Negative)
[2024-06-01 14:54] LABS: Source Nasopharynx
[2024-06-01] MEDS: levoFLOXacin 750 MG/150 ML BAG 100 MG IVPB (15:07)
--- OUTSIDE RECORDS SUMMARY | 2024-06-01 15:15 | XMS_ITS | Encounter Summary ---
Author Organization [facility] Address [address] [place] [address] Care Team Providers Care Extruder Operator Horizontal Name Role Phone None, Provider Primary Care Provider Unavailabl e Encounter Details Date Type Department Care Team (Late st Contact Info) Description 05/22/2021 Lab Requisition [facility] Pathology & Laboratory Medicine - [address] [id number] Outr Resulting Lab, Provider Social History Tobacco Use Types Packs/Day Years Used Date Smoking Tobacco: Never Assessed Sex and Gender Information Value Date Recorded Sex Assigned at Not on file Legal Sex Male 17:54 EST Gender Identity Not on file Sexual Orientation Not on file documented as of this encounter Plan of Treatment Not on file documented as of this encounter Procedures Procedure Name Priority Date/Time Associated Diagnosis Comments ZZCOVID-19 TEST [facility] PCR Today 05/21/2021 11:25 EST COVID-19 TESTING Routine 05/21/2021 11:2 5 EST documented in this encounter Results * COVID-19 TEST [facility] PCR (05/21/2021 11:25 EST) Swab 05/21/2021 11:2 5 EST 05/22/2021 22:54 EST us Provider Outr Resulting Lab MICROBIOLOGY - GENER AL ORDERABLES Final Result [facility] [address] [place] [address] * (ABNORMAL) COVID-19 TESTING (05/21/2021 11:25 EST) COVID-19 rt-PCR Result Positive(AA ) Negative 05/23/2021 14:52 EST [facility] Comment: This test has not been FDA cleared or approved. This test has been authorized by FDA under an EUA for use by authorized laboratories. This test has been authorized only for detection of nucleic acid from 2019-nCoV, not for any other viruses or pathogens. This test is only authorized for the duration of the declaration that circumstances exist justifying the authorization of emergency use of in vitro diagnostic tests for detection and/or diagnosis of 2019-nCoV under section 564(b)(1) of Act, 21 U.S.C ?? 360bbb-3(b) (1), unless the authorization is terminated or revoked sooner. Performed on the VISEOher Fusion instrument Performing Lab [facility] 05/23/2021 14:52 EST [facility] Swab 05/21/2021 11:2 5 EST 05/22/2021 22:54 EST us Provider Outr Resulting Lab MICROBIOLOGY - GENER AL ORDERABLES Final Result [facility] [address] [place] [address] documented in this encounter Visit Diagnoses Not on filedocumented in this encounter Additional Health Concerns Infection Onset Date Last Indicated Resolved Time COVID-19 05/21/2021 05/21/2021 06/10/2021 22:1 5 EST documented as of this encounter Care Teams Extruder Operator Horizontal Relationship Specialty Start Date End Date None, Provider PCP - General 06/17/10 documented as of this encounter
--- OUTSIDE RECORDS SUMMARY | 2024-06-01 15:15 | XMS_ITS | Encounter Summary ---
Author Organization [facility] Address [address] [place] [address] Care Team Providers Care Roll Changer Name Role Phone None, Provider Primary Care Provider Unavailabl e Reason for Visit * Reason Comments Laceration laceration to left h and little finger. Lac full thickness, triangular shaped. Bleeding controlled. States cut finger on glass. Encounter Details Date Type Department Care Team (Late st Contact Info) Description 06/17/2010 0:18 EST - 06/17/2010 1:20 EST Emergency [facility] Emergency Department - [place] [address] [place] [id number] Ermelinda Yusuf, PA-C [address] [id number] Emergency, MD Marcy Finger laceration Discharge Disposition: Home or Self Care Social History Tobacco Use Types Packs/Day Years Used Date Smoking Tobacco: Never Alcohol Use Standard Drinks/Week Comments Yes 0 (1 standard drink = 0.6 oz pur e alcohol) 1-2 per week Sex and Gender Information Value Date Recorded Sex Assigned at Not on file Legal Sex Male 17:54 EST Gender Identity Not on file Sexual Orientation Not on file documented as of this encounter Last Filed Vital Signs Vital Sign Reading Time Taken Comments Blood Pressure 159/63 06/17/2010 0027 EST Pulse 101 06/17/2010 0027 EST Temperature 37.2 ??C (99 ??F) 06/17/2010 0027 EST Respiratory Rate 16 06/17/2010 0027 EST Oxygen Saturation 100% 06/17/2010 0027 EST Inhaled Oxygen Concentration - - Weight 72.6 kg (160 lb) 06/17/2010 0027 EST Height - - Body Mass Index - - documented in this encounter Discharge Instructions * Discharge Instructions* Ermelinda Yusuf - 06/17/2010 1:02 EST Leave tube gauze dressing on for 2 days. You may remove it, wash the laceration repair with soap and water, Pat dry, apply bacitracin or Neosporin and cover with a Band-Aid. Stitches need to be removed in 7-10 days. * Attachments The following attachments cannot be sent through Care Everywhere. * LACERATION: AFTER YOUR VISIT TO THE EMERGENCY ROOM (TAJIK) documented in this encounter Discharge Disposition Disposition Code Departure Means Destination Home or Self Care documented in this encounter ED Notes * Srikanth Barry - 06/17/2010 0119 EST Bacitracin and tube gauze applied. The patient verbalized an understanding of discharge instructions. Ambulated out of the ED via steady gait. NAD noted. Respirations even and unlabored. * Ermelinda Yusuf - 06/17/2010 0102 ESTAssociated Order(s): LACERATION REPAIR Images from the original note were not included. DOS: 06/17/2010 Chief Complaint Patient presents with ??? Laceration laceration to left hand little finger. Lac full thickness, triangular shaped. Bleeding controlled. States cut finger on glass. The patient is a 19 y.o. male who presents today with Laceration HPI Comments: 19-year-old male presents to the ER for evaluation of left fifth digit laceration. Patient states he cut his finger approximately an hour prior to arrival on a broken piece of glass. Patient states he was able to control the bleeding. The history is provided by the patient. Laceration The incident occurred 1 to 2 hours ago. The laceration is located on the left hand. The laceration is 2 cm in size. The laceration mechanism was a broken glass. The pain is mild. The pain has been constant since onset. He reports no foreign bodies present. His tetanus status is UTD. Review of Systems Constitutional: Negative. HENT: Negative. Respiratory: Negative. Cardiovascular: Negative. Gastrointestinal: Negative. Musculoskeletal: Negative. Skin: Positive for wound (left fifth digit laceration). Neurological: Negative. Psychiatric/Behavioral: Negative. History reviewed. No pertinent past medical history. History reviewed. No pertinent past surgical history. Allergies Allergen Reactions ??? Amoxicillin ??? Ceclor (Cefaclor) History Substance Use Topics ??? Tobacco Use: Never ??? Alcohol Use: Yes 1-2 per week History reviewed. No pertinent family history. Vital Signs Temp: 37.2 ??C (99 ??F) Temp src: Tympanic Pulse: 101 Resp: 16 SpO2: 100 % BP: 159/63 mmHg BP Device: BP Machine Patient Position: Sitting BP Cuff Location: Right arm Physical Exam Nursing note and vitals reviewed. Constitutional: He is oriented to person, place, and time. He appears well- developed and well-nourished. HENT: Head: Normocephalic and atraumatic. Eyes: Extraocular motions are normal. Neck: Normal range of motion. Pulmonary/Chest: Effort normal. Musculoskeletal: Normal range of motion. Left hand: He exhibits tenderness and laceration. He exhibits normal range of motion, no bony tenderness, normal capillary refill, no deformity and no swelling. Hands: Neurological: He is alert and oriented to person, place, and time. Skin: Skin is warm and dry. Psychiatric: He has a normal mood and affect. His behavior is normal. Radiology orders: None Laceration Repair Performed by: ERMELINDA YUSUF Authorized by: ERMELINDA YUSUF Consent: Verbal consent obtained. Risks and benefits: risks, benefits and alternatives were discussed Consent given by: patient Patient understanding: patient states understanding of the procedure being performed Body area: upper extremity Location details: right small finger Laceration length: 2 cm Foreign bodies: no foreign bodies Tendon involvement: none Nerve involvement: none Vascular damage: no Anesthesia: digital block Local anesthetic: bupivacaine 0.5% without epinephrine Anesthetic total: 4 ml Patient sedated: no Irrigation solution: saline Amount of cleaning: standard Debridement: none Degree of undermining: none Skin closure: 5-0 Prolene Number of sutures: 5 Technique: simple Approximation: close Approximation difficulty: simple Dressing: tube gauze Patient tolerance: Patient tolerated the procedure well with no immediate complications. ED Course: Patient evaluated. Wound cleaned and repaired. See above laceration repair note. Nursing staff applied to gauze dressing, patient discharged home with instructions for suture removal in 7-10 days. Discharge Prescriptions No Discharge Prescriptions for this patient MDM Number of Diagnoses or Management Options Finger laceration: Diagnosis management comments: 3 1. Finger laceration (883.0H) PCP: MD MIGUEL 06/17/2010 1:02 documented in this encounter Miscellaneous Notes * Scanned Note-Null - Inpatient, Physician - 06/17/2010 0000 EST documented in this encounter Plan of Treatment Not on file documented as of this encounter Visit Diagnoses Diagnosis Finger laceration Open wound of finger(s) , without mention of complication documented in this encounter Care Teams Roll Changer Relationship Specialty Start Date End Date None, Provider PCP - General 06/17/10 documented as of this encounter
--- OUTSIDE RECORDS SUMMARY | 2024-06-01 15:15 | XMS_ITS | Referral Summary ---
Author Organization [facility] Address [address] [place] [address] Care Team Providers Care Tape Transferrer Name Role Phone None, Provider Primary Care Provider Unavailabl e Allergies Active Allergy Reactions Criticality Noted Date Comments Amoxicillin 06/17/2010 Cefaclor 06/17/2010 Medications No known medications Social History Tobacco Use Types Packs/Day Years Used Date Smoking Tobacco: Never Alcohol Use Standard Drinks/Week Comments Yes 0 (1 standard drink = 0.6 oz pur e alcohol) 1-2 per week Sex and Gender Information Value Date Recorded Sex Assigned at Not on file Legal Sex Male 17:54 EST Gender Identity Not on file Sexual Orientation Not on file Last Filed Vital Signs Vital Sign Reading Time Taken Comments Blood Pressure 159/63 06/17/2010 0027 EST Pulse 101 06/17/2010 0027 EST Temperature 37.2 ??C (99 ??F) 06/17/2010 0027 EST Respiratory Rate 16 06/17/2010 0027 EST Oxygen Saturation 100% 06/17/2010 0027 EST Inhaled Oxygen Concentration - - Weight 72.6 kg (160 lb) 06/17/2010 0027 EST Height - - Body Mass Index - - Plan of Treatment Not on file Care Teams Tape Transferrer Relationship Specialty Start Date End Date None, Provider PCP - General 06/17/10
--- OUTSIDE RECORDS SUMMARY | 2024-06-01 15:15 | XMS_ITS | Clinical Summary ---
Author Organization [facility] Address [address] [place] [address] Care Team Providers Care Bulk Mail Technician Name Role Phone None, Provider Primary Care [...] on file Sexual Orientation Not on file Obstetrics History Last Filed Vital Signs Vital Sign Reading [...] Mass Index - - Plan of Treatment Health Maintenance Due Date Last Done Comments Hepatitis C Screen 1989 Hepatitis B Vaccine (1 of 3 - 19+ 3-dose series) 10/17 COVID-19 Vaccine (2023- season) 2024 Care Teams Bulk Mail Technician Relationship Specialty Start Date End Date None, Provider PCP - General 06/17/10
[2024-06-01] MEDS: Omnipaque 350 MG/ML 100 ML BTL IJ (15:29)
[2024-06-01] MEDS: Normal Saline - Diluent 50 ML VIAL IJ (15:33)
--- NOTE | 2024-06-01 15:45 | W.ED.FU ---
Follow Up Plan: Handoff report received from Roosevelt Her, rubina RONY. Please see his note for full HPI, ROS, physical exam, and diagnostics so far. I did briefly interview patient and perform limited physical exam. Brianne is a 33-year-old male who presented to emergency department today for evaluation of 1 week of fevers, sore throat, cough, shortness of breath after coughing fits, and generalized unwellness. Kenn does feel warm, consistent with low-grade fever. Easy work of breathing, lung sounds clear bilaterally. Normal heart sounds, mild tachycardia with heart rate 95 noted. Minimal dry cough during exam. No dental abnormalities or broken teeth. CT was concerning for possible splenic abscess; areas of decreased attenuation scattered throughout the spleen. Consulted with Dr. Alvarez, general surgeon. He says that the cause of splenomegaly is not obvious, would like to rule out endocarditis and mono as potential causes, though abscess is also possible; recommends broad-spectrum antibiotics, blood cultures, echo, Monospot. 1645:Kenn developed a rash to the left side of his face while receiving levofloxacin which was ordered by MARGIE Her. Denies oral swelling, difficulty breathing, wheezing, nausea. He does have hives noted scattered across the L side of face and neck. Easy work of breathing, lung sounds clear bilaterally. Will DC med and give benadryl IV. Will switch to vanco and pip-tazo (pt had diarrhea on amoxicillin, no true allergy). Rash resolved after Benadryl given. 1500 cc total fluid given for IV hydration for patient with tachycardia and persistent fever despite APAP and ibuprofen. 1735: [place] is positive. Discussed case with Dr. Dean, infectious disease at [facility] [place] [facility] [place]. Low suspicion for endocarditis or other obvious infectious disease based on lack of corresponding physical exam findings (osler nodes, janeway lesions, cervical/submandibular LAD, tonsillar exudate). He recommends continuing antibiotics until blood cultures come back negative. if concern persists for endocarditis, recommends TTE. Tick panel added on per specialist recommendation. Discussed case with Rosina Seaman, hospitalist RONY. She is agreeable to admitting patient.
--- NOTE | 2024-06-01 16:40 | W.SURGCON ---
Date of service: 06/02/24 History of Present Illness History of Present Illness Chief Complaint: splenic infarct/abscess PFSH All Active Problems (Updated 04/06/23 @ 00:01 by SORAYA ROMERO) Cough (Acute) Medical History HTN (hypertension) Surgical History No significant past surgical history Social History Smoking/Tobacco Use Status: Current every day Tobacco Type: smokeless tobacco Smoking risk assessment performed?: Yes Alcohol Intake: current Alcohol Intake frequency: a few times a week Alcohol type: beer Drug use: Socially Substance use type: marijuana Do you feel safe at home: Yes Do you feel safe in your relationship?: Yes Results Last Vital Signs Temp 100.1 F H 06/01/24 15:50 Pulse 95 H 06/01/24 15:50 Resp 15 06/01/24 13:53 BP 149/90 H 06/01/24 15:50 Pulse Ox 98 06/01/24 15:50 Labs 06/01/24 13:50 06/01/24 13:50 Labs: Laboratory Results - last 24 hr 06/01/24 13:50 WBC 12.63 H RBC 4.93 Hgb 15.2 Hct 43.0 MCV 87 MCH 30.8 MCHC 35.3 RDW 12.4 Plt Count 185 MPV 10.3 Immature Gran % 0.0 Neutrophils % 21.0 Band Neutrophils % 0 Lymphocytes % 62.0 Atypical Lymphs % 4 Monocytes % 13.0 Eosinophils % 0.0 Basophils % 0.0 Nucleated RBC % 0.0 Absolute Neutrophils 2.65 Absolute Lymphocytes 8.34 H Absolute Monocytes 1.64 H Absolute Eosinophils 0.00 Absolute Basophils 0.00 VBG Lactate 2.1 H Sodium 134 L Potassium 3.3 L Chloride 97 L Carbon Dioxide 27.9 Anion Gap 9.1 BUN 9 Creatinine 1.3 Est GFR (CKD-EPI 2020) 73.93 Glucose 103 Calcium 8.3 L Total Bilirubin 5.28 H Conjugated Bilirubin 4.2 H AST 287 H ALT 292 H Alkaline Phosphatase 339 H Total Protein 7.4 Albumin 3.3 L Lipase 35 Ethyl Alcohol < 3.0 COVID-19 Source Nasopharynx SARS-CoV-2 (PCR) Negative Influenza Type A (PCR) Negative Influenza Type B (PCR) Negative RSV (PCR) Negative
[2024-06-01] MEDS: diphenhydrAMINE 50 MG/ML VIAL 25 MG IVP (17:02)
[2024-06-01] MEDS: Normal Saline 500 ML 1000 ML IV (17:03)
[2024-06-01 17:27] LABS: Mono Screening POSITIVE (Negative)
--- NOTE | 2024-06-01 17:41 | W.PM.HP.N ---
Date of service: 06/01/24 Time of Service: 17:41 Assessment and Plan Assessment and plan (1) Elevated liver function tests: Status: Acute Assessment and plan: Acute hepatitis panel pending Is in the setting of acute mono-infection Avoid hepatotoxic drugs (2) Mononucleosis: Status: Acute Assessment and plan: Is being admitted to the medical surgical unit Case was discussed with ID and they do recommend continuing Zosyn and Vanco pending blood culture results Low likelihood of endocarditis will obtain echocardiogram if available History of Present Illness Narrative: This is a 33-year-old male patient no significant past medical history presents to the emergency department with a 1 week history of fever sore throat, cough body aches malaise and nausea. He underwent a septic workup and his workup in the emergency department did show elevated LFTs with a CT concerning for a possible splenic abscess. His case was discussed with general surgery and recommendations for broad-spectrum antibiotics blood cultures echo and Monospot placed. His Monospot did come back positive. His case was further discussed with ID at [facility] and their recommendations were to continue the antibiotics until his blood cultures came back negative. Of note he did have a rash that developed on the left side of his face after receiving levofloxacin. He did not have any other symptoms. He was given Benadryl and the Levaquin was discontinued and he was changed to vancomycin and Zosyn. Hemodynamically he has been stable he is being admitted to the hospitalist services pending his blood culture results Review of Systems All systems reviewed & are unremarkable except as noted in HPI and below PFSH All Active Problems (Updated 06/01/24 @ 18:47 by Cinthya Zapata) Mononucleosis (Acute) Elevated liver function tests (Acute) Cough (Acute) Medical History HTN (hypertension) Surgical History No significant past surgical history Social History Smoking/Tobacco Use Status: Current every day Tobacco Type: smokeless tobacco Smoking risk assessment performed?: Yes Alcohol Intake: current Alcohol Intake frequency: a few times a week Alcohol type: beer Drug use: Socially Substance use type: marijuana Housing: house Do you feel safe at home: Yes Do you feel safe in your relationship?: Yes Meds Allergies and Home Medications Allergies Allergy/AdvReac Type Severity Reaction Status Date / Time cefaclor (From Ceclor) Allergy Severe Skin Rash Unverified 06/01/24 13:38 levofloxacin Allergy Mild Skin Rash Verified 06/02/24 03:37 amoxicillin (Amoxicillin) Allergy Unknown Other (See Unverified 06/01/24 13:38 Comment) Home Medications ?Medication ?Instructions ?Recorded ?Confirmed ?Type Unknown [No Known Home Meds] 09/09/23 06/01/24 History Exam Narrative Exam Narrative: Acutely ill-appearing male of stated age no acute distress head is atraumatic eyes nonicteric noninjected oral mucosas slightly dry neck is supple full range of motion no meningeal signs cardiovascular regular rate and rhythm respirations even and unlabored abdomen soft slightly tender over upper moves all extremities no peripheral edema rash improving left side of face Results Labs 06/02/24 05:59 06/02/24 05:59 Labs: Laboratory Results - last 24 hr 06/01/24 13:50 WBC 12.63 H RBC 4.93 Hgb 15.2 Hct 43.0 MCV 87 MCH 30.8 MCHC 35.3 RDW 12.4 Plt Count 185 MPV 10.3 Immature Gran % 0.0 Neutrophils % 21.0 Band Neutrophils % 0 Lymphocytes % 62.0 Atypical Lymphs % 4 Monocytes % 13.0 Eosinophils % 0.0 Basophils % 0.0 Nucleated RBC % 0.0 Absolute Neutrophils 2.65 Absolute Lymphocytes 8.34 H Absolute Monocytes 1.64 H Absolute Eosinophils 0.00 Absolute Basophils 0.00 VBG Lactate 2.1 H Sodium 134 L Potassium 3.3 L Chloride 97 L Carbon Dioxide 27.9 Anion Gap 9.1 BUN 9 Creatinine 1.3 Est GFR (CKD-EPI 2020) 73.93 Glucose 103 Calcium 8.3 L Total Bilirubin 5.28 H Conjugated Bilirubin 4.2 H AST 287 H ALT 292 H Alkaline Phosphatase 339 H Total Protein 7.4 Albumin 3.3 L Lipase 35 Ethyl Alcohol < 3.0 COVID-19 Source Nasopharynx SARS-CoV-2 (PCR) Negative Monoscreen POSITIVE A Influenza Type A (PCR) Negative Influenza Type B (PCR) Negative RSV (PCR) Negative Last Vital Signs Temp 37.1 C 06/01/24 17:01 Pulse 96 H 06/01/24 17:01 Resp 21 06/01/24 17:01 BP 153/83 H 06/01/24 17:01 Pulse Ox 97 06/01/24 17:01 PAWSS Have you Been Recently Intoxicated or Drunk Within the Last 30 days?: Yes Have you Ever Experienced Previous Episodes of Alcohol Withdrawal?: No Have you ever Experienced Withdrawal Seizures?: No Have you ever Experienced Delirium Tremens(DT)s?: No Have you ever undergone Alcohol Rehabilitation Treatment (i.e, inpt ot outpatient treatment programs)?: No Have you ever Experienced Blackouts?: No Have you ever Combined Alcohol with other Downers within the last 90 days?: No Have you ever Combined Alcohol with any other Substance of Abuse during the last 90 days?: No Positive Blood Alcohol level on Presentation? [PCS.BAL]: No Evidence of Increased Autonomic Activity (i.e. HR>120, tremor, sweating, agitation, nausea)?: No Result: 1 Time Spent Time spent with Patient: 40-54 minutes Time was spent: preparing to see the patient(eg.review tests), obtaining and/or reviewing separately otained hiistory, ordering medications,tests, procedures, indepentently interpreting results and counseling the patient
[2024-06-01] MEDS: PIPERACILLIN/TAZO 4.5 GM in Normal Saline 100 ML IVPB (17:44)
--- NOTE | 2024-06-01 18:29 | W.PC.ACHO ---
Registration Status: Primary Language: Preferred Language: ED Information & Data Chief Complaint Fever 06/01/24 13:43 Chief Complaint Fever 06/01/24 13:42 Other Complaint RespSymp 06/01/24 13:13 Triage Note PT reports persistent mild 06/01/24 13:13 fever, sporadic productive cough (yellow/green sputum). PT reports uncomfortable swallowing. Symptoms persistent for approx 1 week . Medical / Surgical History (Last Reviewed 06/16/21 @ 01:58 by Rickie Douglass MD) HTN (hypertension) (Last Reviewed 06/16/21 @ 01:58 by Rickie Douglass MD) No significant past surgical history Most Recent Vital Signs Temperature 37.1 C 06/01/24 17:01 Temperature Source Oral 06/01/24 15:50 Pulse 96 H 06/01/24 17:01 Pulse 106 H 06/01/24 17:01 Respiratory Rate 21 06/01/24 17:01 Blood Pressure 153/83 H 06/01/24 17:01 Blood Pressure Mean 105 06/01/24 17:01 Blood Pressure Position Sitting 06/01/24 13:53 Pulse Oximetry 97 06/01/24 17:01 Oxygen Delivery Method Room Air 06/01/24 15:50 Oxygen Flow Rate 0 06/01/24 15:50 Pain Level 4 06/01/24 15:50 Allergies cefaclor (From Ceclor) Allergy (Severe, Unverified 06/01/24 13:38) Skin Rash amoxicillin (Amoxicillin) Allergy (Unknown, Unverified 06/01/24 13:38) Other (See Comment) Active Medications Generic Name Dose Route Start Last Admin Trade Name Elieserq PRN Reason Stop Dose Admin Iohexol 100 ml 06/01/24 15:30 06/01/24 15:29 Omnipaque 350 Mg/Ml 100 Ml Btl IJ 07/01/24 23:59 80 ml DIRECTED LINCOLN Administration Sodium Chloride 50 ml 06/01/24 15:30 06/01/24 15:33 Normal Saline - Diluent 50 Ml Vial IJ 50 ml .FOR DI USE LINCOLN Administration IV IV Catheter Type [Right Saline Lock Antecubital] IV Catheter Gauge [Right 18 Antecubital] Diet Orders Category Date Time Status Regular/Normal [DIET] Nutrition 06/01/24 Dinner Active Diagnostics 06/01/24 06/01/24 Range/Units 17:32 13:50 WBC 12.63 H (4.4-10.8) 10^3/uL RBC 4.93 (4.36-5.78) 10^6/uL Hgb 15.2 (13.5-17.5) g/dL Hct 43.0 (40.0-50.0) % MCV 87 (80-95) fL MCH 30.8 (27.0-33.0) pg MCHC 35.3 (32.0-36.0) % RDW 12.4 (11.8-14.1) % Plt Count 185 (130-400) 10^3/uL MPV 10.3 (8.0-11.0) fL Immature Gran % 0.0 % Neutrophils % 21.0 % Band Neutrophils % 0 % Lymphocytes % 62.0 % Atypical Lymphs % 4 % Monocytes % 13.0 % Eosinophils % 0.0 % Basophils % 0.0 % Nucleated RBC % 0.0 (0.0-0.3) % Absolute Neutrophils 2.65 (1.2-6.7) 10^3/uL Absolute Lymphocytes 8.34 H (1.2-3.4) 10^3/uL Absolute Monocytes 1.64 H (0.1-0.8) 10^3/uL Absolute Eosinophils 0.00 (0.0-0.7) 10^3/uL Absolute Basophils 0.00 (0.0-0.2) 10^3/uL VBG Lactate 2.1 H (0.6-1.4) mmol/L Sodium 134 L (136-145) mmol/L Potassium 3.3 L (3.5-5.1) mmol/L Chloride 97 L (98-107) mmol/L Carbon Dioxide 27.9 (21.0-32.0) mmol/L Anion Gap 9.1 (3-11) mmol/L BUN 9 (7-18) mg/dL Creatinine 1.3 (0.70-1.30) mg/dL Est GFR (CKD-EPI 2020) 73.93 (mL/min/1.73m2) Glucose 103 (74-106) mg/dL Calcium 8.3 L (8.5-10.1) mg/dL Total Bilirubin 5.28 H (0.2-1.0) mg/dL Conjugated Bilirubin 4.2 H (0.0-0.2) mg/dL AST 287 H (15-37) U/L ALT 292 H (16-63) U/L Alkaline Phosphatase 339 H (46-116) U/L Total Protein 7.4 (6.4-8.2) g/dL Albumin 3.3 L (3.4-5.0) g/dL Lipase 35 (<78) U/L Ethyl Alcohol < 3.0 (<10) mg/dL B. divergens/MO-1 PCR Pending Babesia duncani (PCR) Pending Babesia microti DNA PCR Pending Lyme Disease Antibody Pending COVID-19 Source Nasopharynx SARS-CoV-2 (PCR) Negative (Negative) E.chaffeensis DNA (PCR) Pending E.ewingii/canis DNA PCR Pending E.muris eauclairensis (PCR) Pending Hepatitis A IgM Ab Pending Hep Bs Antigen Pending Hep B Core Total Ab Pending Hepatitis C Antibody Pending Monoscreen POSITIVE A (Negative) Influenza Type A (PCR) Negative (Negative) Influenza Type B (PCR) Negative (Negative) RSV (PCR) Negative (Negative) A. phagocytophilum (PCR) Pending Blood B. miyamotoi (PCR) Pending 06/01/24 13:52 Blood Culture - Pending Blood 06/01/24 13:50 Blood Culture - Pending Blood 06/01/24 14:15 Group A Streptococcus Culture - Pending Tonsil - Not Specified [id number]-Eral Documentation POC Strep Test-ROD(Rapid) Start: 06/01/24 13:45 Freq: .Rapid Strep Test Status: Active Protocol: Activity Type Activity Date Activity User E-sign Co-sign Detail Recorded Client Recorded Date Recorded By Document 06/01/24 14:37 [id number] 06/01/24 14:38 Intake and Output - 24 Hour Total 06/01/24 13:10 thru 06/01/24 17:30 Intake Total 600 Balance 600 Weight 86.183 kg Intake: IV 600 Falls Risk Assessment History of Falls No History 06/01/24 16:48 Contributing Factors No Factors 06/01/24 16:48 Ambulatory Aids Independent 06/01/24 16:48 Tubes/Lines None 06/01/24 16:48 Gait Evaluation No gait disturbance 06/01/24 16:48 Cognition No cognitive impairment 06/01/24 16:48 Fall Total Score 0 06/01/24 16:48 Level of Risk Standard/Low Risk 06/01/24 16:48 Problems (Last Reviewed 06/16/21 @ 01:58 by Rickie Douglass MD) Mononucleosis (Acute) Elevated liver function tests (Acute) v v v v v v v v v Sending and/or Receiving Nurses: Please use comment section below to note any information pertinent to the patient hand-off not included above. Information / Comments: Report received from: el benton at 0737
--- NOTE | 2024-06-01 18:39 | NUR.NOTE ---
Patient is noted with rashes and wheals to the left eye, redness noted to the back. Provider made aware and patient was administered with Benadryl 25mg
[2024-06-01] MEDS: PIPERACILLIN/TAZO 3.375 GM in Normal Saline 50 ML IVPB (23:50)
[2024-06-02] MEDS: PIPERACILLIN/TAZO 3.375 GM in Normal Saline 50 ML IVPB (05:24)
[2024-06-02 06:22] LABS: Abs Immature Grans 0.16 10^3/uL (0.0-0.06); HCT 37.8 % (40.0-50.0); HGB 13.5 g/dL (13.5-17.5); MCH 30.9 pg (27.0-33.0); MCHC 35.7 % (32.0-36.0); MCV 87 fL (80-95); MPV 10.2 fL (8.0-11.0); Platelet Count 189 10^3/uL (130-400); RBC 4.37 10^6/uL (4.36-5.78); RDW 12.5 % (11.8-14.1); RDW-SD 40.2 fL; WBC 12.72 10^3/uL (4.4-10.8)
[2024-06-02 06:42] LABS: ALT 374 U/L (16-63); AST 448 U/L (15-37); Albumin 2.6 g/dL (3.4-5.0); Alkaline Phosphatase 292 U/L (46-116); Anion Gap 10.1 mmol/L (3-11); BUN 7 mg/dL (7-18); Bilirubin, Total 5.25 mg/dL (0.2-1.0); CO2 24.9 mmol/L (21.0-32.0); CREATININE 1.2 mg/dL (0.70-1.30); Calcium 7.9 mg/dL (8.5-10.1); Chloride 102 mmol/L (98-107); Estimated GFR 81.38 (mL/min/1.73m2); Glucose 91 mg/dL (74-106); Potassium 3.5 mmol/L (3.5-5.1); Sodium 137 mmol/L (136-145); Total Protein 6.3 g/dL (6.4-8.2)
[2024-06-02 07:06] LABS: Absolute Neutrophil Count 2.67 10^3/uL (1.2-6.7)
[2024-06-02 07:07] LABS: Absolute Basophil Count 0.13 10^3/uL (0.0-0.2); Absolute Lymphocyte Count 8.14 10^3/uL (1.2-3.4); Absolute Monocyte Count 1.78 10^3/uL (0.1-0.8); Diff Comment Manual Differential; RBC Morphology Normal
[2024-06-02 07:08] LABS: Atypical Lymphocytes % 8 %
[2024-06-02 07:43] VITALS: BP 134/87; PULSE 96; RESP 18; TEMP 36.9; O2SAT 99
[2024-06-02] MEDS: Ibuprofen 400 MG TAB PO (09:12)
--- NOTE | 2024-06-02 09:30 | DI.US_ITS ---
APPROVED REPORT EXAM: Comprehensive 2D, Doppler, and color-flow Echocardiogram Patient Location: In-Patient Room/Bed: [address] Examiner: Larry Mccord RDCS (AE) Indications: Fever, r/o endocarditis Other Information Study Quality: Fair Conclusion Normal left ventricular wall thickness and chamber size. Ejection fraction is 60%. Wall motion is n ormal Normal right ventricular size and function Both atria are normal in size There is no structural or hemodynamically significant valvular disease No valvular vegetations are identified Estimated right ventricular systolic pressure is 20 mmHg Wall motion Left Ventricle The left ventricle is normal size. Left ventricular systolic function is normal. The left ventricular ejection fraction is within the normal range. There is normal left ventricular wall thickness. There is normal LV segmental wall motion. There is no ventricular septal defect visualized. LVEF is 60%. Right Ventricle The right ventricle is normal size. The right ventricular systolic function is normal. Atria The left atrium size is normal. Right atrium is mildly dilated. The interatrial septum is intact with no evidence for an atrial septal defect. Aortic Valve The aortic valve is normal in structure. Aortic valve is trileaflet. There is no aortic valvular sten osis. No aortic regurgitation is present. Mitral Valve The mitral valve is normal in structure. No evidence of mitral valve stenosis. There is no mitral laine ve regurgitation noted. Tricuspid Valve The tricuspid valve is normal in structure. There is no tricuspid valve stenosis. Trace tricuspid reg urgitation. The RVSP is 20 mmHg. Pulmonic Valve The pulmonary valve is normal in structure. There is no pulmonic valvular stenosis. There is no pulmo angle valvular regurgitation. Great Vessels The aortic root is normal in size. The ascending aorta is normal in size. Aortic arch is normal in ca liber. IVC is normal in size and collapses >50% with inspiration. Pericardium There is no pericardial effusion. 2D Dimensions IVSD d PLAX 1.12 cm M: 0.6-1.2 Ao Root d 2.66 cm M: 3.1 - 3.7 LVPW d PLAX 1.09 cm M: 0.6 - 1.2 Ao Asc Diam d 2.93 cm M: 2.6 - 3.4 LVID d PLAX 5.08 cm M: 4.2 - 5.8 LVDs 3.37 cm M: 2.5 - 4.0 LV EF Teichholz 62.2 % FS 33.73 % LV EDV (Teich) 122.9 mL LV ESV (Teich) 46.4 mL Stroke Vol Index (Teich) 36.77 M-Mode TAPSE 2.47 cm (M/F) >1.7 Auto EF LV EDV A4C 117.1 mL LV EDV A2C 107.2 mL LV EDV BP 113.2 mL LV ESV A4C 49.3 mL LV ESV A2C 41.7 mL LV ESV BP 46.0 mL LVEF(%) A4C 57.9 % LVEF(%) A2C 61.1 % LVEF(%) BP 59.4 % LV SV A4C 67.8 ml LV SV A2C 65.5 ml LV SV BP 67.2 ml LV CO A4C 6.8 L/min LV CO A2C 6.5 L/min LV CO BP 6.7 L/min HR A4C 100.85 BPM HR A2C 99.45 BPM LV EDV Index (BP) LA Volume LA Length A4C 3.7 cm LA Length A2C 4.5 cm LA Area A4C s 11.47 cm2 LA Area A2C s 14.16 cm2 LA Vol A4C A-L 29.96 mL LA Vol A2C A-L 38.25 mL LA Vol Biplane A-L 37.0 mL LA Vol/BSA A4C A-L LA Vol/BSA A2C A-L LA Vol/BSA BP A-L 17.8 mL/m2 LA Vol A4C MOD 27.4 mL LA Vol A2C MOD 35.9 mL LA Vol BP MOD 34.2 mL RA Volume RA Area A4C 12.9 cm2 RA ESV A4C (A-L) 35.6mL RA Vol/BSA A4C A-L RA Length A4C 4.0 cm RA ESV A4C (MOD) 33.5mL LV Diastology MV E' medial 0.117 (>0.07 m/s) MV E Vmax 0.80 (0.4-1.3 m/s) MV E/E' MED 6.84 (<14) MV A Vmax 0.70 (0.4-1.3 m/s) MV E' lateral 0.113 (>0.1 m/s) E/A Ratio 1.1 MV E/E' LAT 7.09 (<14) MV E' Average 0.115 m/s MV E/E'(average) 6.96 Aortic Valve AoV Vmax 1.47 m/s LVOT Vmax 1.23 m/s AoV Peak Grad 8.6 mmHg LVOT Peak Grad 6.0 mmHg AoV Area (Vmax) 2.67 cm2 LVOT VTI 0.207 m AoV VTI 0.255 m LVOT Mean Grad 3.3 mmHg AoV Mean Rodo. 1.01 m/s LVOT SV 66.14 mL AoV Mean Grad 4.5 mmHg LVOT Diam s 2.00 cm AoV Area (VTI) 2.60 cm2 AV Regurg Peak Gr. 8.60 mmHg Velocity Ratio 0.84 Mitral Valve MV DT 142 (160-240 msec) Pulmonary Valve PV Vmax 1.21 (0.5-1.5 m/s) RVOT Vmax 0.87 m/s PV Peak Grad 5.9 mmHg RVOT Peak Gr. 3.0 mmHg PV Mean Rodo 0.92 m/s RVOT VTI 0.145 m PV Mean Grad 3.7 mmHg RVOT Mean Gr. 1.7 mmHg Tricuspid Valve RA Pressure 3.00 mmHg TR Vmax 2.04 m/s TR Peak Grad 16.6 mmHg RVSP (TR) 19.6 mmHg
--- NOTE | 2024-06-02 10:11 | INITIAL_ITS ---
Date of service: 06/02/24 Time of Service: 10:11 Care Management Initial Assmt Initial Assessment Reason for Hospitalization: mononucleosis Functional Status/Living Situation Patient Presentation: Kenn was sitting up in bed fully dressed when CM met with him. He informed CM that he is being discharged today and was pleased about going home. Kenn lives in [place] with his and 3 young children and is independent at baseline. 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 Town of Residence: [place], [place] Resides with: Spouse ( Aura) Significant Other/Family: [facility] Employment Status: Employed (self-employed) Instrumental Activities of Daily Living (ADLs): Independent Physical Functioning/Mobility Assistive Device: none Advance Directives Advance Directives: Do you have an Advance Directive: N 12/12/13 00:54 AD On File at [facility]: N 12/12/13 00:54 Date Asked 06/01/24 06/01/24 13:29 AD Date Reviewed COLST On File at [facility] COLST Date Scanned Comment: Kenn will be discharged home with no new services. He will follow up with his community providers and plan of care and transport with family. Code Status Resuscitation Status Full Code Portal Pt does not currently have a portal and education provided: No Insurance Coverage/Financial Issues Insurance: Medicaid Care Team Visit Care Team Role Provider Type Dayo Jackson Primary Care Provider NON-[facility] STAFF PHYSICIAN Cinthya Zapata Emergency Provider NURSE PRACTITIONER Rajiv Alexander MD Admit Provider [facility] STAFF PHYSICIAN Attending Provider Discharge Potential Discharge Needs: PCP F/U Appt Anticipated Barriers to Discharge: None Identified Patient/Family Education Needs: Review discharge instructions, discuss Ask Me Three Transportation: Private vehicle Plan: Kenn will be discharged home with no new services. He will follow up with his PCP and plan of care and transport with his . PFSH All Active Problems (Updated 06/01/24 @ 18:47 by Cinthya Zapata) Mononucleosis (Acute) Elevated liver function tests (Acute) Cough (Acute) Medical History HTN (hypertension) Surgical History No significant past surgical history Social History Smoking/Tobacco Use Status: Current every day Tobacco Type: smokeless tobacco Smoking risk assessment performed?: Yes Alcohol Intake: current Alcohol Intake frequency: a few times a week Alcohol type: beer Drug use: Socially Substance use type: marijuana Housing: house Do you feel safe at home: Yes Do you feel safe in your relationship?: Yes SDOH(Care Management) Screening Will the Patient Participate in the Screening?: Yes Do you worry about having a steady place to live?: no Problems where you live: no known problems In the past 12 months, have you had to go without electric, gas, oil or water in your home?: no Have you or anyone in your house had to go without enough food to eat?: no Has lack of transportation kept you from medical appointments or from doing things needed for daily living?: no Has anyone in your support network made you feel unsafe for any reason?: no
[2024-06-02 10:38] LABS: INR 1.1 (0.9-1.1); Prothrombin Time 11.4 sec (9.1-11.1)
--- NOTE | 2024-06-02 10:50 | W.PM.DS.N ---
Date of service: 06/02/24 Time of Service: 10:50 DS: Diagnosis Discharge Diagnosis (1) Elevated liver function tests: Status: Acute (2) Mononucleosis: Status: Acute Discharge Plan Disposition Patient Disposition: Home Condition: Improving Discharge Details Reason For Visit: Mononucleosis Admit Date/Time: 06/01/24 17:38 Admit Provider: Rajiv Alexander Attending Provider: Rajiv Alexander Primary Care Provider: Dayo Jackson Hospital Course Hospital Course: Patient presented to the emergency department for evaluation of febrile illness with upper respiratory symptoms including cough sore throat. His workup in the emergency department did include a CAT scan which showed splenomegaly possible abscesses. His case was discussed with ID at [facility] and are general surgeon. Ultimately he was diagnosed with mono. He was observed on the medical surgical unit on broad-spectrum antibiotics pending blood culture results. Overnight resting comfortably hemodynamically stable some improvement in his symptoms. Labs remain stable. Pending is acute hepatitis panel and final blood cultures. He is stable for discharge to home and will follow-up or return sooner for new or worsening symptoms. Discussed with DR Alexander Home Meds and New Rx's Prescriptions: No Action No Known Home Meds Discharge Instructions Instructions: Mononucleosis, Toxic Hepatitis (DC), Hepatitis Panel Additional Instructions: Avoid alcohol Avoid acetaminophen or Tylenol or medications that contain these ingredients You should arrange for a new primary care provider and have your liver functions retested after you have recovered from your illness You need to return to the emergency department sooner for new or worsening symptoms including but not limited to fever, abdominal pain, yellowing of the skin, or any concerns Stand Alone Forms: Nursing Discharge Form Referrals: Dayo Jackson [Primary Care Provider] - (Please call the office to set up a hospital follow up within 10-14 days.) Activity:: no contact sports Equipment/Supplies:: No Equipment Needed Diet:: As Tolerated Discharge Orders Discharge Orders: Discharge Order (Routine); Ordered 06/02/24 Ordered By: Rosina Seaman Discharge Data Discharge Date/Time-TO BE ENTERED AT DEPARTURE: 06/02/24 11:37 DS: Summary Time Spent with Patient providing and/or coordinating discharge services: Less than 30 minutes Status at Discharge Functional status at discharge: independent ambulation Overall status at discharge: patient is progressing back to baseline Mental Status: mental status grossly normal Speech and Movement: speech and movement normal Mood: congruent mood Affect: normal affect Quality:SDOH Health Related Social Needs: No Data to Display Exam Narrative Exam Narrative: male of stated age no acute distress head is atraumatic eyes nonicteric noninjected oral mucosas slightly dry neck is supple full range of motion no meningeal signs cardiovascular regular rate and rhythm respirations even and unlabored abdomen soft slightly tender over upper moves all extremities no peripheral edema rash improving left side of face Psych Mental Status: mental status grossly normal Speech and Movement: speech and movement normal Mood: congruent mood Affect: normal affect DS: Data Vitals/I&O Vitals and I&O: Vital Signs Temperature 36.9 C 06/02/24 07:43 Temperature Source Tympanic 06/02/24 07:43 Pulse 96 H 06/02/24 07:43 Pulse Rhythm Regular 06/01/24 22:01 Pulse 88 06/01/24 18:45 Respiratory Rate 18 06/02/24 07:43 Respiratory Effort Normal 06/01/24 22:01 Respiratory Depth Normal 06/01/24 22:01 Respiratory Pattern Normal 06/01/24 22:01 Blood Pressure 134/87 06/02/24 07:43 Blood Pressure Mean 104 06/01/24 18:45 Blood Pressure Position Sitting 06/01/24 13:53 Pulse Oximetry 99 06/02/24 07:43 Oxygen Delivery Method Room Air 06/02/24 07:43 Oxygen Flow Rate 0 06/02/24 07:43 Pain Level 3 06/02/24 09:12 Intake & Output 06/01/24 06/01/24 06/02/24 11:59 23:59 11:59 Intake Total 2150 / 2450 1450 / 1450 Balance 2150 / 2450 1450 / 1450 Weight 86.183 kg Intake: IV 1950 / 1950 350 / 350 Oral 200 / 500 1100 / 1100 Other: Urine Color Yellow Urine Appearance Clear Urine Odor None Comment per pt per pt voided x2 Data Completed and Pending Labs on day of discharge: Labs from last 24 hours 06/02/24 06/02/24 06/01/24 10:19 05:59 13:50 WBC 12.72 H 12.63 H RBC 4.37 4.93 Hgb 13.5 15.2 Hct 37.8 L 43.0 MCV 87 87 MCH 30.9 30.8 MCHC 35.7 35.3 RDW 12.5 12.4 Plt Count 189 185 MPV 10.2 10.3 Immature Gran % See Differential 0.0 Neutrophils % 21.0 21.0 Band Neutrophils % 0 Lymphocytes % 56.0 62.0 Atypical Lymphs % 8 4 Monocytes % 14.0 13.0 Eosinophils % 0.0 0.0 Basophils % 1.0 0.0 Nucleated RBC % 0.0 0.0 Absolute Neutrophils 2.67 2.65 Absolute Lymphocytes 8.14 H 8.34 H Absolute Monocytes 1.78 H 1.64 H Absolute Eosinophils 0.00 0.00 Absolute Basophils 0.13 0.00 RBC Morphology Normal PT 11.4 H INR 1.1 VBG Lactate 2.1 H Sodium 137 134 L Potassium 3.5 3.3 L Chloride 102 97 L Carbon Dioxide 24.9 27.9 Anion Gap 10.1 9.1 BUN 7 9 Creatinine 1.2 1.3 Est GFR (CKD-EPI 2020) 81.38 73.93 Glucose 91 103 Calcium 7.9 L 8.3 L Total Bilirubin 5.25 H 5.28 H Conjugated Bilirubin 4.2 H AST 448 H 287 H ALT 374 H 292 H Alkaline Phosphatase 292 H 339 H Total Protein 6.3 L 7.4 Albumin 2.6 L 3.3 L Lipase 35 Ethyl Alcohol < 3.0 B. divergens/MO-1 PCR Babesia duncani (PCR) Babesia microti DNA PCR Lyme Disease Antibody COVID-19 Source Nasopharynx SARS-CoV-2 (PCR) Negative E.chaffeensis DNA (PCR) E.ewingii/canis DNA PCR E.muris eauclairensis (PCR) Hepatitis A IgM Ab Pending Hep Bs Antigen Pending Hep B Core Total Ab Pending Hepatitis C Antibody Pending Monoscreen POSITIVE A Influenza Type A (PCR) Negative Influenza Type B (PCR) Negative RSV (PCR) Negative A. phagocytophilum (PCR) Blood B. miyamotoi (PCR) 06/01/24 05:59 WBC RBC Hgb Hct MCV MCH MCHC RDW Plt Count MPV Immature Gran % Neutrophils % Band Neutrophils % Lymphocytes % Atypical Lymphs % Monocytes % Eosinophils % Basophils % Nucleated RBC % Absolute Neutrophils Absolute Lymphocytes Absolute Monocytes Absolute Eosinophils Absolute Basophils RBC Morphology PT INR VBG Lactate Sodium Potassium Chloride Carbon Dioxide Anion Gap BUN Creatinine Est GFR (CKD-EPI 2020) Glucose Calcium Total Bilirubin Conjugated Bilirubin AST ALT Alkaline Phosphatase Total Protein Albumin Lipase Ethyl Alcohol B. divergens/MO-1 PCR Pending Babesia duncani (PCR) Pending Babesia microti DNA PCR Pending Lyme Disease Antibody Pending COVID-19 Source SARS-CoV-2 (PCR) E.chaffeensis DNA (PCR) Pending E.ewingii/canis DNA PCR Pending E.muris eauclairensis (PCR) Pending Hepatitis A IgM Ab Hep Bs Antigen Hep B Core Total Ab Hepatitis C Antibody Monoscreen Influenza Type A (PCR) Influenza Type B (PCR) RSV (PCR) A. phagocytophilum (PCR) Pending Blood B. miyamotoi (PCR) Pending 06/01/24 13:52 Blood Blood Culture - Pending 06/01/24 13:50 Blood Blood Culture - Pending 06/01/24 14:15 Tonsil - Not Specified Group A Streptococcus Culture - Pending Preliminary micro results at discharge 06/01/24 13:52 Blood Culture - Pending Blood 06/01/24 13:50 Blood Culture - Pending Blood 06/01/24 14:15 Group A Streptococcus Culture - Pending Tonsil - Not Specified PFSH All Active Problems (Updated 06/01/24 @ 18:47 by Cinthya Zapata) Mononucleosis (Acute) Elevated liver function tests (Acute) Cough (Acute) Medical History HTN (hypertension) Surgical History No significant past surgical history Social History Smoking/Tobacco Use Status: Current every day Tobacco Type: smokeless tobacco Smoking risk assessment performed?: Yes Alcohol Intake: current Alcohol Intake frequency: a few times a week Alcohol type: beer Drug use: Socially Substance use type: marijuana Housing: house Do you feel safe at home: Yes Do you feel safe in your relationship?: Yes Time Spent with Patient Time Spent with Patient: <45 minutes Time was spent: preparing to see the patient(eg.review tests), obtaining and/or reviewing separately otained hiistory, indepentently interpreting results and counseling the patient
[2024-06-02 12:28] LABS: Hepatitis A Antibody IgM Negative (Negative); Hepatitis B Core Antibody Negative (Negative); Hepatitis B surface Ag Negative (Negative); Hepatitis C Ab w Rflx HCV PCR Negative (Negative)
--- NOTE | 2024-06-02 14:53 | PDOC.CMDIS ---
Date of service: 06/02/24 Time of Service: 14:54 Care Management Discharge Plan Reason for Hospitalization: mono SDOH Health Related Social Needs: No Data to Display
[2024-06-04 10:19] LABS: Lyme Ab w Rflx to Lyme Confirm Negative (Negative)
[2024-06-05 16:43] LABS: Anaplasma phagocytophilum Negative (Negative); B. miyamotoi PCR Negative (Negative); Babesia divergens/MO-1 Negative (Negative); Babesia duncani Negative (Negative); Babesia microti Negative (Negative); Ehrlichia chaffeensis Negative (Negative); Ehrlichia ewingii/canis Negative (Negative); Ehrlichia muris eauclairensis Negative (Negative)
== END 2024-06-02 11:37 | disposition home or self-care (01) | DRG 866 ==
LOC: ER 18:47 → MS 19:31
PROVIDERS: Nurse Practitioner Acute Care; Physician Assistant; Admitting Provider Family Medicine; Emergency Provider Nurse Practitioner Family; PCP Family Medicine; Visit Provider Family Medicine
DX: B27.90 Infectious mononucleosis, unspecified without complication (principal); L27.1 Localized skin eruption due to drugs and medicaments taken internally; T36.8X5A Adverse effect of other systemic antibiotics, initial encounter; R79.89 Other specified abnormal findings of blood chemistry; I10 Essential (primary) hypertension; R05.9 Cough, unspecified; F12.90 Cannabis use, unspecified, uncomplicated; F17.220 Nicotine dependence, chewing tobacco, uncomplicated
CPT/HCPCS: 00123; 36415; 80053; 83690; 86704; 86709; 86803; 87040; 87077; 87340; 87637; 87798; 87880; 96365; 96367; 96375; 99285; 71046; 74177; 80320; 82248; 83605; 85025; 85610; 86308; 86618; 87081; 87186; 93306; 99222; 99239; J1200; J1956; J2543; J3370; J3490

== ENCOUNTER 2024-06-19 15:29 | Outpatient (REF) | payer MEDICAID, SELFPAY ==
[2024-06-19 14:20] LABS: Abs Immature Grans 0.02 10^3/uL (0.0-0.06); Absolute Basophil Count 0.07 10^3/uL (0.0-0.2); Absolute Eosinophil Count 0.19 10^3/uL (0.0-0.7); Absolute Lymphocyte Count 2.54 10^3/uL (1.2-3.4); Absolute Monocyte Count 0.48 10^3/uL (0.1-0.8); Absolute Neutrophil Count 2.18 10^3/uL (1.2-6.7); Basophils % 1.3 %; Eosinophils % 3.5 %; HCT 48.3 % (40.0-50.0); HGB 15.7 g/dL (13.5-17.5); Immature Grans % 0.4 %; Lymphocytes % 46.4 %; MCH 29.2 pg (27.0-33.0); MCHC 32.5 % (32.0-36.0); MCV 90 fL (80-95); MPV 9.7 fL (8.0-11.0); Monocytes % 8.8 %; Neutrophils % 39.6 %; Platelet Count 390 10^3/uL (130-400); RBC 5.37 10^6/uL (4.36-5.78); RDW 12.7 % (11.8-14.1); WBC 5.48 10^3/uL (4.4-10.8)
[2024-06-19 14:54] LABS: ALT 51 U/L (16-63); AST 28 U/L (15-37); Albumin 4.1 g/dL (3.4-5.0); Alkaline Phosphatase 122 U/L (46-116); Anion Gap 5.7 mmol/L (3-11); BUN 13 mg/dL (7-18); Bilirubin, Total 1.52 mg/dL (0.2-1.0); CO2 28.3 mmol/L (21.0-32.0); CREATININE 1.2 mg/dL (0.70-1.30); Calcium 9.8 mg/dL (8.5-10.1); Chloride 108 mmol/L (98-107); Estimated GFR 81.38 (mL/min/1.73m2); Glucose 105 mg/dL (74-106); Potassium 4.9 mmol/L (3.5-5.1); Sodium 142 mmol/L (136-145); Total Protein 8.2 g/dL (6.4-8.2)
--- OUTSIDE RECORDS SUMMARY | 2024-06-19 15:30 | XMS_ITS | Encounter Summary ---
Author Organization [facility] Address [address] [place] [address] Care Team Providers Care Wind Turbine Performance Engineer Name Role Phone None, Provider Primary Care Provider Unavailabl e Encounter Details Date Type Department Care Team (Late st Contact Info) Description 06/02/2024 Lab Requisition [facility] Pathology & Laboratory Medicine - [facility] [address], [place] [id number] Outr Resulting Lab, Provider Social History Tobacco [...] Procedure Name Priority Date/Time Associated Diagnosis Comments LYME AB Routine 06/01/2024 5:59 EST documented in this encounter Results * LYME AB (06/01/2024 5:59 EST) Lyme Ab Negative Negative 06/04/2024 10:14 EST [facility] Blood VENOUS BLOOD / Unknown 06/01/2024 5:59 EST 06/02/2024 16:54 EST us Provider Outr Resulting Lab IMMUNOLOGY AND SEROL OGY ORDERABLES Final Result [facility] [address] [place] [address] documented in this encounter Visit Diagnoses Not on filedocumented in this encounter Care Teams Wind Turbine Performance Engineer Relationship Specialty Start Date End Date None, Provider PCP - General 06/17/10 documented as of this encounter
--- OUTSIDE RECORDS SUMMARY | 2024-06-19 15:30 | XMS_ITS | Encounter Summary ---
Author Organization [facility] Address [address] [place] [address] Care Team Providers Care Principal Strategist Name Role Phone None, Provider Primary Care Provider Unavailabl e Encounter Details Date Type Department Care Team (Late st Contact Info) Description 05/22/2021 Lab Requisition [facility] Pathology & Laboratory Medicine - [address] [id number] Outr Resulting Lab, Provider Social History Tobacco [...] MICROBIOLOGY - GENER AL ORDERABLES Final Result [facility] [address] [place] [address] * (ABNORMAL) COVID-19 TESTING (05/21/2021 11:25 EST) COVID-19 rt-PCR Result Positive(AA ) Negative 05/23/2021 14:52 EST [facility] Comment: This test has not [...] terminated or revoked sooner. Performed on the [employer] Fusion instrument Performing Lab [facility] Lab 05/23/2021 14:52 EST [facility] Swab 05/21/2021 11:2 5 EST 05/22/2021 22:54 EST us Provider Outr Resulting Lab MICROBIOLOGY - GENER AL ORDERABLES Final Result [facility] [address] [place] [address] documented in this encounter Visit Diagnoses Not on filedocumented in this encounter Additional Health Concerns Infection Onset Date Last Indicated Resolved Time COVID-19 05/21/2021 05/21/2021 06/10/2021 22:1 5 EST documented as of this encounter Care Teams Principal Strategist Relationship Specialty Start Date End Date None, Provider PCP - General 06/17/10 documented as of this encounter
--- OUTSIDE RECORDS SUMMARY | 2024-06-19 15:30 | XMS_ITS | Clinical Summary ---
Author Organization [facility] Address [address] [place] [address] Care Team Providers Care Licensed Pharmacist Name Role Phone None, Provider Primary Care Provider Unavailabl e Allergies Active Allergy Reactions Criticality Noted Date Comments Amoxicillin 06/17/2010 Cefaclor 06/17/2010 Medications No known medications Encounters Date Type Department Care Team Description 06/02/2024 Lab Requisition [facility] Pathology & Laboratory [address] [address] Outr Resulting Lab, Provider 06/01/2024 Lab Requisition [facility] Pathology & Laboratory [facility] [address] [place] [address] Outr Resulting Lab, Provider from Last 3 Months Social History Tobacco Use Types Packs/Day Years [...] (1 of 3 - 19+ 3-dose series) 05/10 /2009 COVID-19 Vaccine ( season) 2024 Procedures Procedure Name Priority Date/Time Associated Diagnosis Comments ACUTE HEPATITIS PROFILE Routine 06/01/2024 13:50 EST LYME AB Routine 06/01/2024 5:59 EST from Last 3 Months Results * ACUTE HEPATITIS PROFILE (06/01/2024 13:50 EST) Hep B Surface Ag Negative Negative 06/02/2024 12:23 EST [facility] Hep C Antibody Negative Negative 06/02/2024 12:23 EST [facility] Hepatitis A Antibody, IgM Negative Negative 06/02/2024 12:23 EST [facility] Comment:The results of this assay can be falsely lowered due to the consumption of Biotin. Hepatitis B Core Ab, Total Negative Negative 06/02/2024 12:23 EST [facility] Blood VENOUS BLOOD / Unknown 06/01/2024 13:50 EST 06/01/2024 21:14 EST us Provider Outr Resulting Lab CHEMISTRY & BLOOD GA S ORDERABLES Final Result Performing Organization Address [facility] Co de Phone Number [facility] [address] [place] [phone] * LYME AB (06/01/2024 5:59 EST) Lyme Ab Negative Negative 06/04/2024 10:14 EST [facility] Blood VENOUS BLOOD / Unknown 06/01/2024 5:59 EST 06/02/2024 16:54 EST us Provider Outr Resulting Lab IMMUNOLOGY AND SEROL OGY ORDERABLES Final Result Performing Organization Address [facility] Co de Phone Number [facility] [address] [place] [address] from Last 3 Months Care Teams Licensed Pharmacist Relationship Specialty Start Date End Date None, Provider PCP - General 06/17/10
--- OUTSIDE RECORDS SUMMARY | 2024-06-19 15:30 | XMS_ITS | Encounter Summary ---
Author Organization [facility] Address [address] [place] [id number] Care Team Providers Care Resident Surgeon Name Role Phone None, Provider Primary Care Provider Unavailabl e Reason for Visit * Reason Comments Laceration laceration to left h and little finger. Lac full thickness, triangular shaped. Bleeding controlled. States cut finger on glass. Encounter Details Date Type Department Care Team (Late st Contact Info) Description 06/17/2010 0:18 EST - 06/17/2010 1:[address] [facility] Emergency Department - Main [place] [address] [place] [id number] Ermelinda Yusuf, PA-C [address] [id number] Emergency, MD Marcy Finger laceration [...] AFTER YOUR VISIT TO THE EMERGENCY ROOM ([facility]) documented in this encounter Discharge Disposition Disposition [...] complication documented in this encounter Care Teams Resident Surgeon Relationship Specialty Start Date End Date None, Provider PCP - General 06/17/10 documented as of this encounter
--- OUTSIDE RECORDS SUMMARY | 2024-06-19 15:30 | XMS_ITS | Referral Summary ---
Author Organization [facility] Address [address] [place] [address] Care Team Providers Care Rim Fire Priming Tool Setter Name Role Phone None, Provider Primary Care Provider Unavailabl e Encounters Date Type Department Care Team Description 06/02/2024 Lab Requisition [facility] Pathology & Laboratory [address] [address] Outr Resulting Lab, Provider 06/01/2024 Lab Requisition [facility] Pathology & Laboratory [address] [address] Outr Resulting Lab, Provider from Last 3 Months Allergies Active Allergy Reactions Criticality Noted Date [...] - Plan of Treatment Not on file Procedures Procedure Name Priority Date/Time Associated Diagnosis Comments ACUTE HEPATITIS PROFILE Routine 06/01/2024 13:50 EST LYME AB Routine 06/01/2024 5:59 EST from Last 3 Months Results * ACUTE HEPATITIS PROFILE (06/01/2024 13:50 EST) Hep B Surface Ag Negative Negative 06/02/2024 12:23 EST [facility] Hep C Antibody Negative Negative 06/02/2024 12:23 EST [facility] Hepatitis A Antibody, IgM Negative Negative 06/02/2024 12:23 EST [facility] Comment:The results of this assay can be falsely lowered due to the consumption of Biotin. Hepatitis B Core Ab, Total Negative Negative 06/02/2024 12:23 EST [facility] Blood VENOUS BLOOD / Unknown 06/01/2024 13:50 EST 06/01/2024 21:14 EST us Provider Outr Resulting Lab CHEMISTRY & BLOOD GA S ORDERABLES Final Result Performing Organization Address City/[facility]/ZIP Co de Phone Number [facility] [address] [place] [address] * LYME AB (06/01/2024 5:59 EST) Lyme Ab Negative Negative 06/04/2024 10:14 EST [facility] Blood VENOUS BLOOD / Unknown 06/01/2024 5:59 EST 06/02/2024 16:54 EST us Provider Outr Resulting Lab IMMUNOLOGY AND SEROL OGY ORDERABLES Final Result [facility] [address] [place] [address] from Last 3 Months Care Teams Rim Fire Priming Tool Setter Relationship Specialty Start Date End Date None, Provider PCP - General 06/17/10
--- OUTSIDE RECORDS SUMMARY | 2024-06-19 15:30 | XMS_ITS | Encounter Summary ---
Author Organization [facility] Address [address] [place] [address] Care Team Providers Care Nursing Techn Name Role Phone None, Provider Primary Care Provider Unavailabl e Encounter Details Date Type Department Care Team (Late st Contact Info) Description 06/01/2024 Lab Requisition [facility] Pathology & Laboratory Medicine - [facility] [address] [place], [place] [address] Outr Resulting Lab, Provider Social History Tobacco [...] ACUTE HEPATITIS PROFILE Routine 06/01/2024 13:50 EST documented in this encounter Results * ACUTE HEPATITIS PROFILE (06/01/2024 13:50 EST) Hep B Surface Ag Negative Negative 06/02/2024 12:23 EST [facility] Hep C Antibody Negative Negative 06/02/2024 12:23 EST [facility] Hepatitis A Antibody, IgM Negative Negative 06/02/2024 12:23 EST [facility] Comment:The results of this assay can be falsely lowered due to the consumption of Biotin. Hepatitis B Core Ab, Total Negative Negative 06/02/2024 12:23 EST [facility] Blood VENOUS BLOOD / Unknown 06/01/2024 13:50 EST 06/01/2024 21:14 EST us Provider Outr Resulting Lab CHEMISTRY & BLOOD GA S ORDERABLES Final Result [facility] [address] [place] [address] documented in this encounter Visit Diagnoses Not on filedocumented in this encounter Care Teams Nursing Techn Relationship Specialty Start Date End Date None, Provider PCP - General 06/17/10 documented as of this encounter
== END 2024-06-19 15:30 | disposition home or self-care (01) ==
LOC: NCHCN 15:29
PROVIDERS: PCP Family Medicine; Visit Provider Physician Assistant
DX: Z86.19 Personal history of other infectious and parasitic diseases (principal); Z11.9 Encounter for screening for infectious and parasitic diseases, unspecified
CPT/HCPCS: 80053; 85025

== ENCOUNTER 2024-11-12 15:24 | Outpatient (REF) | payer MEDICAID, SELFPAY ==
[2024-11-20 11:36] LABS: Fungus Smear No Fungi Seen
== END 2024-11-12 15:25 | disposition home or self-care (01) ==
LOC: NCHCN 15:24
PROVIDERS: PCP Family Medicine; Visit Provider Physician Assistant
DX: R36.9 Urethral discharge, unspecified (principal)
CPT/HCPCS: 87102; 87206; 87086